=== PATIENT | female | born 1935 | race Caucasian/White ===

== ENCOUNTER 2016-11-03 11:22 | Inpatient (IN) | payer MEDICARE, BC, OTHER ==
[~2016-11-03] VITALS: Ht 147.3 cm; Wt 74.0 kg
[2016-11-03] MEDS ORDERED: MORPHINE 4 MG/ML 1ML SYRINGE As Ordered ONE ×2 (11:27→13:57)
[2016-11-03] MEDS ORDERED: ONDANSETRON 4MG/2ML VIAL (J2405) As Ordered ONE ×2 (11:27→20:18)
--- NOTE | 2016-11-03 12:36 | REP ---
Right hip series to include AP and cross-table lateral views right hip, and AP pelvis Comparison : None Findings: There is a comminuted intertrochanteric fracture right hip with a free avulsion fragment involving the lesser trochanter. 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 The bony pelvic ring is otherwise intact. There is no pelvic fracture or pelvic diastasis. The left hip is without fracture or displacement. Impression: Comminuted displaced intertrochanteric fracture of the right hip The remainder of the bony pelvis is intact. Left hip is without fracture or displaced Signed by Sandra Harvey MD 11/03/2016 12:27 P
--- NOTE | 2016-11-03 12:39 | REP ---
AP supine chest radiograph 11/03/2016 Indication: Preop Comparison: PA and lateral chest 01/16/2013 performed at [facility] Findings: Cardiomediastinal silhouette is normal. Lungs are clear bilaterally. There is eventration of the medial aspect of the right hemidiaphragm , with slight progression when compared with prior study . There are mild degenerative changes in thoracic spine Impression: no acute cardiopulmonary process Signed by Sandra Harvey MD 11/03/2016 12:31 P
[2016-11-03 12:54] LABS: BASO % 0.4 % (0.0-1.0); EOS # 0.1 K/mm3 (0.0-0.50); EOS % 1.4 % (0.0-3.0); LARGE UNSTAINED CELL # 0.2 K/mm3 (0.0-0.4); LARGE UNSTAINED CELL % 1.8 % (0.0-4.0); LYMPH # 1.6 K/mm3 (1.5-4.5); LYMPH % 19.2 % (24.0-44.0); MEAN CORPUSCULAR HEMOGLOBIN 29.5 pg (27.0-33.0); MEAN CORPUSCULAR HGB CONC 32.6 g/dl (32.0-36.5); MEAN CORPUSCULAR VOLUME 90.6 fl (80.0-96.0); MONO # 0.4 K/mm3 (0.0-0.8); MONO % 5.1 % (0.0-5.0); NEUTROPHILS # 6.1 K/mm3 (1.8-7.7); NEUTROPHILS % 72.1 % (36.0-66.0); PLATELET COUNT, AUTOMATED 321 k/mm3 (150-450); RED CELL DISTRIBUTION WIDTH 12.5 % (11.5-14.5); WHITE BLOOD COUNT 8.5 K/mm3 (4.0-10.0)
[2016-11-03 12:58] LABS: INR 1.04
[2016-11-03] MEDS ORDERED: PERCOCET 5MG/325MG TAB PO PRN ×2 (13:15)
[2016-11-03] MEDS ORDERED: ACETAMINOPHEN TAB 650MG DOSE (2X325MG) PO PRN (13:15)
[2016-11-03] MEDS ORDERED: ONDANSETRON 4MG/2ML VIAL (J2405) IV PRN ×2 (13:15→20:00)
[2016-11-03] MEDS ORDERED: IRBE150T12 PO (13:21)
[2016-11-03] MEDS ORDERED: NIACCAP PO (13:21)
[2016-11-03] MEDS ORDERED: GEMF600T PO (13:21)
[2016-11-03] MEDS ORDERED: OMEP20CA3 PO (13:21)
[2016-11-03] MEDS ORDERED: DRIS50002 PO (13:21)
[2016-11-03] MEDS ORDERED: VITA500T88 PO (13:23)
[2016-11-03] MEDS ORDERED: CITA40TA4 PO (13:23)
[2016-11-03] MEDS ORDERED: TAB-TAB PO (13:23)
[2016-11-03] MEDS ORDERED: MORPHINE 4 MG/ML 1ML SYRINGE IV PRN (13:30)
[2016-11-03 13:43] LABS: CALCIUM LEVEL 8.8 MG/DL (8.8-10.2); CREATININE FOR GFR 1.06 MG/DL (0.55-1.02); GLOMERULAR FILTRATION RATE 53.1 (>32); POTASSIUM SERUM 4.2 MEQ/L (3.5-5.1)
--- NOTE | 2016-11-03 13:55 | HPE ---
DATE OF ADMISSION: 11/03/2016 PRIMARY CARE PROVIDER: Dr. Griffin in [place]. CHIEF COMPLAINT: Right hip fracture. HISTORY OF PRESENT ILLNESS: Patient is an 81-year-old female with a past medical history significant for osteoporosis, diet-controlled diabetes, hypertension, gastroesophageal reflux disease (GERD), depression, hypercholesterolemia, presented to [facility] on 11/03/2016 after a mechanical fall. She was walking a dog and near the driveway. She stepped on a layer of ice, and she slipped, landing on her right hip. After the injury, patient complained about significant right hip pain, and she could not move the hip. Denies any loss of consciousness. Denies any lacerations or bleeding. Denies any muscle weakness. Denies any lightheadedness. When patient arrived to the emergency room, hip x-ray was performed, which showed comminuted displaced intratrochanteric fracture of the right hip, and orthopedic surgeon, Dr. Bernstein, was contacted and decided to schedule patient for a procedure, and hospitalist team was called for admission and also for the preoperative clearance. Patient denies any history of heart disease. Denies any lung disease. Regarding her diabetes, patient stated that she has been using dietary control due to a history of metformin causing kidney injury. At baseline, patient never has any significant hyperglycemia. Patient had three major surgeries in the past, and she has never had an issue with sedation and surgery. At baseline patient can walk more than two blocks and climb more than one flight of stairs without any difficulty breathing. Before the hip fracture, patient has been very independent in her home. She can manage her activities of daily living without any assistance. ALLERGIES: PENICILLIN, rash. HOME MEDICATIONS: - irbesartan 150 mg by mouth daily - gemfibrozil 600 mg by mouth twice a day - omeprazole 20 mg by mouth daily - niacin 500 mg by mouth daily - vitamin D2 at 50,000 units by mouth monthly - vitamin C 500 mg by mouth daily PAST MEDICAL HISTORY: 1. Osteoporosis. 2. Ves-pyhjvrt-sghedgeio diabetes. 3. Hypertension. 4. Omeprazole. 5. Depression. 6. Hypercholesterolemia. SOCIAL HISTORY: Denies smoking. Denies any alcohol use. Denies any recreational drug use. REVIEW OF SYSTEMS: GENERAL: No fever. No chills. HEENT: No lightheadedness. No vision change. No auditory changes. CARDIOVASCULAR: No history of cardiac disease. No chest pain. No palpitations. RESPIRATORY: No history of significant lung disease. No shortness of breath. No cough. No sputum production. GASTROINTESTINAL: No nausea. No vomiting. No abdominal pain. No diarrhea. MUSCULOSKELETAL: Denies any muscle or joint pain. NEUROLOGIC: Denies any numbness or tingling. OBJECTIVE: VITAL SIGNS: Blood pressure is 132/96, pulse rate is 109, respirations rate is 20, temperature is 96.8, weight is 56.7 kg, body height is 147.32 cm. GENERAL: Mild to moderate distress. Patient alert and oriented times three. HEENT: Normocephalic, atraumatic. Extraocular motor grossly intact. CARDIOVASCULAR: Positive S1, S2, regular rate. LUNGS: Clear to auscultation bilaterally. ABDOMEN: Soft, nontender, nondistended. Bowel sounds present. No rebound. No guarding. EXTREMITIES: Trace pitting edema bilaterally. There is some mild varicose veins of the bilateral lower extremities near the ankles. NEUROLOGIC: Sensation to fine touch grossly intact. Muscle strength 5/5. Unable to check right lower extremity strength due to the significant pain. LABORATORY DATA: WBC 8.5, hemoglobin 10.6, hematocrit 32.6, platelet count is 321. A1c is 6.1. PT is 13.7, INR is 1.04. Hip x-ray shows comminuted, displaced intertrochanteric fracture of the right hip. A chest x-ray showed no acute cardiopulmonary process. EKG shows sinus rhythm. No ST abnormalities. ASSESSMENT AND PLAN: 1. Right hip fracture. Patient will be admitted to medical/surgical floor on inpatient status. The orthopedic surgeon has seen the patient and been consulted, and patient is scheduled to have right hip replacement by Dr. Bernstein in the afternoon. Patient will remain nothing by mouth. Patient will receive pain control through intravenous (IV) morphine. Patient does have diabetes. Patient's diabetes has been under good control, A1c of 6.1. Patient does not have any significant pulmonary or cardiovascular diseases in the past. At baseline, patient has full capacity to maintain her own activities of daily living without assistance. Patient has metabolic equivalent of task (MET) greater than 4. EKG reviewed. EKG shows normal sinus rhythm. Patient is a low-risk patient. The surgery is intermediate risk. Currently, patient is medially optimized for the procedure. 2. Rqq-zumrwdw-tzevepbrd diabetes. Patient stated most of the time she has good blood sugars with diet control. 3. Gastroesophageal reflux disease. Patient is on omeprazole. 4. Hypertension. Patient is on irbesartan. We will hold the blood pressure medication. 5. Hyperlipidemia. Patient has taken gemfibrozil in the past. 6. Deep vein thrombosis (DVT) prophylaxis. On hold. Patient has scheduled surgery in the afternoon.
[2016-11-03] MEDS ORDERED: CLINDAMYCIN 600 MG/50 ML PREMIX BAG As Ordered ONE (14:14)
[2016-11-03] MEDS ORDERED: CLINDAMYCIN INJ 900MG/6ML VIAL As Ordered ONE ×2 (14:17→17:28)
--- NOTE | 2016-11-03 15:16 | REP ---
RIGHT FEMUR: AP and lateral views of the right femur are performed. A comminuted intertrochanteric fracture is again noted of the proximal right femur with varus deformity. The more distal femur is intact. There appears to be chondrocalcinosis at the knee joint. AP views are somewhat limited due to limitations with patient positioning. Signed by Lucio Oshea MD 11/03/2016 04:56 P
--- NOTE | 2016-11-03 16:57 | EDDOCDS ---
Nurse's Notes [facility] Name: Avi Craft Age: 81 yrs Sex: Female : 1935 Arrival Date: 11/03/2016 Time: 11:22 Bed 19 Private MD: Diagnosis: Intertrochanteric fracture of femur Presentation: 11/03 11:30 Presenting complaint: EMS states: fell wallking dog and injured right hip-no head ms2 injury --no LOC. 11:32 Presenting complaint: EMS states: given morphine 4mg and zofran 4mg at 1115. Adult ms2 Sepsis Screening: The patient does not have new or worsening altered mentation. Patient's respiratory rate is less than 22. Suicide/Homicide risk assessment- the patient denies having any suicidal and/or homicidal ideations and does not present with any other emotional, behavioral or mental health complaints. 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 Transition of care: patient was not received from another setting of care. 11:32 Acuity: SHIN Level 3 ms2 11:32 Method Of Arrival: Ambulance ms2 Triage Assessment: 11:35 General: Appears distressed, ill, Behavior is crying. Pain: Pain currently is 9 out of ms2 10 on a pain scale. The patient is triaged at the bedside. See Assessment in Nurses Notes section of ED record. Neurological: Level of Consciousness is awake, alert, obeys commands. Respiratory: No deficits noted. Airway is patent Respiratory effort is even, unlabored, Respiratory pattern is regular, symmetrical. GI: Abdomen is flat, non- distended. Derm: Skin is pink, warm & dry. Musculoskeletal: Range of motion intact in all extremities. Historical: - Allergies: PENICILLINS; - Home Meds: 1. irbesartan 150 mg oral tab 1 tab once daily (Last dose: 11/03/2016 07:30) 2. gemfibrozil 600 mg Oral tab 1 tab 2 times per day (Last dose: 11/03/2016 07:30) 3. omeprazole 20 mg Oral cpDR 1 cap once daily (Last dose: 11/03/2016 07:30) 4. niacin 500 mg Oral Tb24 1 tab once daily (Last dose: 11/03/2016 07:30) 5. Vitamin D2 50,000 unit oral cap once monthly 6. Vitamin C 500 mg Oral tab daily (Last dose: 11/03/2016 07:30) - PMHx: Osteoporosis; Diabetes - NIDDM: controlled; Hypertension; OMEPRAZOLE; depression; Hypercholesterolemia; - PSHx: Appendectomy; Cholecystectomy; Adenoidectomy; Tonsillectomy; Tubal ligation; - Family history: Not pertinent. - Social history: No barriers to communication noted, The patient speaks fluent Angolan. - : The pt / caregiver states he / she is not on anticoagulants. Home medication list is obtained from the patient. Screenin:39 Screening information is obtained from the patient. Fall risk: At risk due to ms2 immobility. Assistance ADL's: requires no assistance with activities of daily living. Abuse/DV Screen: The patient / caregiver reports he/she is: not in a situation that causes fear, pain or injury. 16:36 Nutritional screening: No deficits noted. Advance Directives: Currently, there is no ms2 health care proxy. There is an active DNR order but there is no copy available at this time. There is no living will. There is an active Power of Human Resource Officer, son lisa craft. Advance directive information does not know if advance directives have been placed in a prior [facility] medical record. Further advance directive information is declined. home support is adequate. Assessment: 11:48 General: Appears uncomfortable, Behavior is cooperative. Pain: Location: right groin ms2 Pain currently is 9 out of 10 on a pain scale. Pain: Pain currently is 7 out of 10 on a pain scale. Neurological: Level of Consciousness is awake, alert, obeys commands. Respiratory: No deficits noted. Airway is patent Respiratory effort is even, unlabored, Respiratory pattern is regular, symmetrical. Derm: Skin is pink, warm & dry. Musculoskeletal: Range of motion limited in right hip. Musculoskeletal: Circulation, motion, and sensation intact Capillary refill < 3 seconds. 11:51 General: LAST ATE:0800---CINAMOMN ROLL -COFFEE. ms2 12:43 General: orthopedist in to speak with pt and family. ms2 13:17 General: Appears in no apparent distress, Behavior is cooperative. General: pt declines ms2 pain med-will request if needs. General: family with pt. Pain: Pain currently is 4 out of 10 on a pain scale. Neurological: Level of Consciousness is awake, alert, obeys commands. Respiratory: Respiratory effort is even, unlabored. Derm: Skin is pink, warm & dry. Musculoskeletal: Circulation, motion, and sensation intact Capillary refill < 3 seconds Range of motion limited in right hip. 14:08 General: Radiology aware to do femur x-ray. ms2 14:30 General: sullivan catheter inserted per order and per procedure-pt tolerated well draining ms2 yellow urine. 15:16 General: Appears in no apparent distress. Pain: Pain currently is 5 out of 10 on a pain ms2 scale. Neurological: No deficits noted. Respiratory: Respiratory effort is even, unlabored. Derm: Skin is pink, warm & dry. Musculoskeletal: Circulation, motion, and sensation intact Capillary refill < 3 seconds Range of motion limited in right hip. 16:30 General: Appears in no apparent distress, Behavior is cooperative. Pain: Pain currently ms2 is 5 out of 10 on a pain scale. Neurological: Level of Consciousness is awake, alert, obeys commands. Respiratory: No deficits noted. Airway is patent Respiratory effort is even, unlabored, Respiratory pattern is regular, symmetrical. Derm: Skin is pink, warm & dry. Musculoskeletal: Range of motion limited in right hip. 16:33 Adult Sepsis Screening: The patient does not have new or worsening altered mentation. ms2 Patient's respiratory rate is less than 22. Systolic blood pressure is greater than 100. Patient has a qSOFA score of 0- Negative Sepsis Screen. Vital Signs: 11:38 BP 132 / 96; Pulse 109; Resp 20 S; Temp 96.8(T); Weight 56.7 kg (R); Height 4 ft. 10 ms2 in. (147.32 cm) (R); Pain 9/10; 14:07 BP 130 / 61; Pulse 94; Resp 20 S; Pulse Ox 96% on R/A; ms2 14:37 BP 126 / 61; Pulse 87; Resp 20 S; Temp 97.2(O); Pulse Ox 94% on R/A; Pain 2/10; ms2 16:23 BP 125 / 65; Pulse 94; Resp 16; Temp 97.5(O); Pulse Ox 94% on R/A; Pain 3/10; ld5 11:38 Body Mass Index 26.13 (56.70 kg, 147.32 cm) ms2 ED Course: 11:23 Patient visited by Yeni Ardon, Warehouse Administrator. deg 11:23 Patient moved to Waiting deg 11:24 Tatyana Zaragoza MD is Attending Physician. sd1 11:24 Hua Palacio,RN is Primary Nurse. sd1 11:24 Patient moved to 19 sd1 11:24 Patient moved to Waiting deg 11:24 Patient moved to 19 sd1 11:27 Patient visited by Tatyana Zaragoza MD. sd1 11:30 IV is patent, is intact, right ac by ems. No procedures done that require assistance. ms2 11:33 IV is patent, is intact, is free of redness or swelling. solution is infusing as ms2 ordered. 11:35 Triage Initiated ms2 11:59 Patient visited by Hua Palacio,LAUREN. ms2 12:43 Patient visited by Hua Palacio,LAUREN. ms2 12:43 PT/INR Sent. ms2 12:43 MED Profile Sent. ms2 12:43 CBC with Diff Sent. ms2 12:47 Hemoglobin A1c Sent. ms2 12:51 Olya Dillon is Hospitalizing Provider. sd1 12:59 Hip,AP,LAT to include Pelvis Returned. EDMS 12:59 Chest, 1 View Returned. EDMS 13:17 Patient visited by Hua Palacio,LAUREN. ms2 13:18 The patient / caregiver is instructed regarding the plan of care and ED course. ms2 13:18 IV is patent, is intact, is free of redness or swelling. solution is infusing as ms2 ordered. 13:37 [facility] Payment Agreement was scanned into [employer] and attached to record. lg 13:47 Admission Orders was scanned into [employer] and attached to record. deg 15:22 Femur Returned. EDMS 16:31 The patient / caregiver is instructed regarding the plan of care and ED course. ms2 16:31 IV is patent, is intact, is free of redness or swelling. solution is infusing as ms2 ordered. Administered Medications: 11:37 Drug: morphine 4 mg [morphine 4 mg/mL intravenous cartridge (1 mL)] Route: IVP; Site: rs3 right antecubital; 11:37 Drug: Ondansetron 4 mg [ondansetron HCl 2 mg/mL intravenous solution (2 mL)] Route: rs3 IVP; Site: right antecubital; 11:37 Drug: NS 0.9% 1000 ml [sodium chloride 0.9 % intravenous solution] Route: IV; Rate: 100 rs3 mL/hr; Site: right antecubital; 14:00 Drug: morphine 4 mg [morphine 4 mg/mL intravenous cartridge (1 mL)] Route: IVP; Site: ms2 right antecubital; 14:07 Follow up: BP 130 / 61; Pulse 94 bpm; Resp 20 bpm Spontaneous; Pulse Ox 96% RA ms2 Output: 16:23 Urine: 400.00ml (Sullivan); Total: 400.00ml. ld5 Order Results: Lab Order: CBC with Diff; SPEC'M 11/03/16 12:37 Test: WHITE BLOOD COUNT; Value: 8.5; Range: 4.0-10.0; Units: K/mm3; Status: F Test: RED BLOOD COUNT; Value: 3.60; Range: 4.00-5.40; Abnormal: Below low normal; Units: M/mm3; Status: F Test: HEMOGLOBIN; Value: 10.6; Range: 12.0-16.0; Abnormal: Below low normal; Units: g/dl; Status: F Test: HEMATOCRIT; Value: 32.6; Range: 36.0-47.0; Abnormal: Below low normal; Units: %; Status: F Test: MEAN CORPUSCULAR VOLUME; Value: 90.6; Range: 80.0-96.0; Units: fl; Status: F Test: MEAN CORPUSCULAR HEMOGLOBIN; Value: 29.5; Range: 27.0-33.0; Units: pg; Status: F Test: MEAN CORPUSCULAR HGB CONC; Value: 32.6; Range: 32.0-36.5; Units: g/dl; Status: F Test: RED CELL DISTRIBUTION WIDTH; Value: 12.5; Range: 11.5-14.5; Units: %; Status: F Test: PLATELET COUNT, AUTOMATED; Value: 321; Range: 150-450; Units: k/mm3; Status: F Test: NEUTROPHILS %; Value: 72.1; Range: 36.0-66.0; Abnormal: Above high normal; Units: %; Status: F Test: LYMPH %; Value: 19.2; Range: 24.0-44.0; Abnormal: Below low normal; Units: %; Status: F Test: MONO %; Value: 5.1; Range: 0.0-5.0; Abnormal: Above high normal; Units: %; Status: F Test: EOS %; Value: 1.4; Range: 0.0-3.0; Units: %; Status: F Test: BASO %; Value: 0.4; Range: 0.0-1.0; Units: %; Status: F Test: LARGE UNSTAINED CELL %; Value: 1.8; Range: 0.0-4.0; Units: %; Status: F Test: NEUTROPHILS #; Value: 6.1; Range: 1.8-7.7; Units: K/mm3; Status: F Test: LYMPH #; Value: 1.6; Range: 1.5-4.5; Units: K/mm3; Status: F Test: MONO #; Value: 0.4; Range: 0.0-0.8; Units: K/mm3; Status: F Test: EOS #; Value: 0.1; Range: 0.0-0.50; Units: K/mm3; Status: F Test: BASO #; Value: 0.0; Range: 0.0-0.2; Units: K/mm3; Status: F Test: LARGE UNSTAINED CELL #; Value: 0.2; Range: 0.0-0.4; Units: K/mm3; Status: F Lab Order: [facility] Profile; [facility] 11/03/16 12:37 Test: GLUCOSE, FASTING; Value: 110; Range: 83-110; Units: MG/DL; Status: F Test: BLOOD UREA NITROGEN; Value: 23; Range: 7-18; Abnormal: Above high normal; Units: MG/DL; Status: F Test: CREATININE FOR GFR; Value: 1.06; Range: 0.55-1.02; Abnormal: Above high normal; Units: MG/DL; Status: F Test: GLOMERULAR FILTRATION RATE; Value: 53.1; Range: >32; Status: F Test: SODIUM LEVEL; Value: 143; Range: 136-145; Units: MEQ/L; Status: F Test: POTASSIUM SERUM; Value: 4.2; Range: 3.5-5.1; Units: MEQ/L; Status: F Test: CHLORIDE LEVEL; Value: 107; Range: 98-107; Units: MEQ/L; Status: F Test: CARBON DIOXIDE LEVEL; Value: 27; Range: 21-32; Units: MEQ/L; Status: F Test: ANION GAP; Value: 9; Range: 8-16; Units: MEQ/L; Status: F Test: CALCIUM LEVEL; Value: 8.8; Range: 8.8-10.2; Units: MG/DL; Status: F Test Note: ; Units are mL/min/1.73 m2 Chronic Kidney Disease Staging per NKF: Stage I & II GFR >=60 Normal to Mildly Decreased Stage III GFR 30-59 Moderately Decreased Stage IV GFR 15-29 Severely Decreased Stage V GFR <15 Very Little GFR Left ESRD GFR <15 on STAKER SURVEYING Lab Order: PT/INR; [facility]' 11/03/16 12:37 Test: PROTHROMBIN TIME; Value: 13.7; Range: 12.3-14.5; Units: SECONDS; Status: F Test: INR; Value: 1.04; Status: F Test Note: ; THERAPUTIC HUMAN INR VALUES INDICATIONS NORMAL RANGES PROPHYLAXIS/TREATMENT OF: VENOUS THROMBOSIS 2.0-3.0 PULMONARY EMBOLISM 2.0-3.0 PREVENTION OF SYSTEMIC EMBOLISM FROM: TISSUE HEART VALVES 2.0-3.0 ACUTE MYOCARDIAL INFARCTION 2.0-3.0 VALVULAR HEART DISEASE 2.0-3.0 ATRIAL FIBRILLATION 2.0-3.0 MECHANICAL VALVES(HIGH RISK) 2.5-3.5 RECURRENT MYOCARDIAL INFARCTION 2.5-3.5 Lab Order: Hemoglobin A1c; [facility]' 11/03/16 00:00 Test: HEMOGLOBIN A1c; Value: 6.1; Range: 4.5-6.2; Units: %; Status: F Test: ESTIMATED AVERAGE GLUCOSE; Value: 128; Range: 60-110; Abnormal: Above high normal; Units: MG/DL; Status: F Radiology Order: Hip,AP,LAT to include Pelvis Test: Hip,AP,LAT to include Pelvis REASON FOR EXAMINATION: Trauma; Right hip series to include AP and cross-table lateral views right hip, and AP; pelvis; ; Comparison : None; ; Findings: There is a comminuted intertrochanteric fracture right hip with a free; avulsion fragment involving the lesser trochanter. 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 There is no pelvic fracture or pelvic; diastasis. The left hip is without fracture or displacement.; ; Impression: Comminuted displaced intertrochanteric fracture of the right hip; ; The remainder of the bony pelvis is intact. Left hip is without fracture or; displaced; ; ; ; ; ; ; Signed by; Sandra Harvey MD 11/03/2016 12:27 P; Radiology Order: Chest, 1 View Test: Chest, 1 View REASON FOR EXAMINATION: perop; AP supine chest radiograph 11/03/2016; ; Indication: Preop; ; Comparison: PA and lateral chest 01/16/2013 performed at [facility]; ; Findings: Cardiomediastinal silhouette is normal. Lungs are clear bilaterally.; There is eventration of the medial aspect of the right hemidiaphragm , with; slight progression when compared with prior study .; ; There are mild degenerative changes in thoracic spine; ; Impression: no acute cardiopulmonary process; ; ; Signed by; Sandra Harvey MD 11/03/2016 12:31 P; Radiology Order: Femur Test: Femur REASON FOR EXAMINATION: FRACTURE; ; RIGHT FEMUR:; ; AP and lateral views of the right femur are performed.; ; A comminuted intertrochanteric fracture is again noted of the proximal right; femur with varus deformity. The more distal femur is intact. There appears to be; chondrocalcinosis at the knee joint. AP views are somewhat limited due to; limitations with patient positioning.; ; ; ; Unreviewed; Outcome: 12:51 Decision to Hospitalize by Provider. sd1 16:31 Discharge Assessment: patient administered narcotics - yes. Patient was admitted to the [address] or transferred to another facility. The following High Risk Discharge criteria are identified: None. Admitted to OR accompanied by nurse, accompanied by tech, family with patient, via stretcher, with chart. Condition: stable. CT Study completed. Property given to family member, daughter. 16:56 [place]. [facility] [place] Signatures: Dispatcher [employer] EDMS Tatyana Zaragoza MD MD sd1 Yeni Ardon, Warehouse Administrator Unit deg Hua Palacio RN RN ms2 Denia Penn, Reg Reg lg Lucrecia Foster RN RN rs3 Trisha Velazco RN RN ld5 Corrections: (The following items were deleted from the chart) 11:51 11:38 BP 132 / 96; Pulse 109bpm; Resp 20bpm; Spontaneous; 56.7 kg Reported; Height 4 ms2 ft. 10 in. Reported; BMI: 26.1; Pain 9/10; ms2 MTDD
--- NOTE | 2016-11-03 16:57 | EDDOCDS ---
Physician Documentation [facility] Name: Avi Tyson Age: 81 yrs Sex: Female : 1935 Arrival Date: 11/03/2016 Time: 11:22 Bed 19 Private MD: Disposition: 11/03/16 12:51 Hospitalization ordered by Olya Dillon for Inpatient Admission. Preliminary diagnosis is Intertrochanteric fracture of femur. - Bed requested for 5 Maurer. - Status is Inpatient Admission. ms2 - Condition is Stable. - Problem is new. - Symptoms are unchanged. Historical: - Allergies: PENICILLINS; - Home Meds: 1. irbesartan 150 mg oral tab 1 tab once daily (Last dose: 11/03/2016 07:30) 2. gemfibrozil 600 mg Oral tab 1 tab 2 times per day (Last dose: 11/03/2016 07:30) 3. omeprazole 20 mg Oral cpDR 1 cap once daily (Last dose: 11/03/2016 07:30) 4. niacin 500 mg Oral Tb24 1 tab once daily (Last dose: 11/03/2016 07:30) 5. Vitamin D2 50,000 unit oral cap once monthly 6. Vitamin C 500 mg Oral tab daily (Last dose: 11/03/2016 07:30) - PMHx: Osteoporosis; Diabetes - NIDDM: controlled; Hypertension; OMEPRAZOLE; depression; Hypercholesterolemia; - PSHx: Appendectomy; Cholecystectomy; Adenoidectomy; Tonsillectomy; Tubal ligation; - Family history: Not pertinent. - Social history: No barriers to communication noted, The patient speaks fluent Hebrew. - : The pt / caregiver states he / she is not on anticoagulants. Home medication list is obtained from the patient. Vital Signs: 11/03 11:38 BP 132 / 96; Pulse 109; Resp 20 S; Temp 96.8(T); Weight 56.7 kg / 125 lbs (R); Height 4 ms2 ft. 10 in. (147.32 cm) (R); Pain 9/10; 14:07 BP 130 / 61; Pulse 94; Resp 20 S; Pulse Ox 96% on R/A; ms2 14:37 BP 126 / 61; Pulse 87; Resp 20 S; Temp 97.2(O); Pulse Ox 94% on R/A; Pain 2/10; ms2 16:23 BP 125 / 65; Pulse 94; Resp 16; Temp 97.5(O); Pulse Ox 94% on R/A; Pain 3/10; ld5 11:38 Body Mass Index 26.13 (56.70 kg, 147.32 cm) ms2 MDM: 11:25 IV Saline Lock ordered. sd1 11:25 morphine 4 mg IVP every 15 minutes; Document pain score/vitals after each dose (Hold if sd1 SBP < 90mmHg) x2 ordered. 11:25 Ondansetron 4 mg IVP once ordered. sd1 11:26 Hip,AP,LAT to include Pelvis Ordered. EDMS 11:26 NS 0.9% 1000 ml IV at 100 mL/hr continuous ordered. sd1 11:27 CBC with Diff Ordered. EDMS 11:27 MED Profile Ordered. EDMS 11:27 PT/INR Ordered. EDMS 11:27 Chest, 1 View Ordered. EDMS 11:27 ECG WITH READING ER PHYS+CARDIAG ordered. EDMS 12:28 Financial registration complete. lg 12:44 Hemoglobin A1c Ordered. EDMS 13:13 Admission / Observation Status ordered. EDMS 13:13 NPO DIET ordered. EDMS 13:37 [facility] [place] was scanned into [employer] and attached to record. lg 13:47 Admission Orders was scanned into [employer] and attached to record. deg 13:48 Femur Ordered. EDMS 14:45 Lundy ordered. ms2 16:20 Hip, IN O.R. Ordered. EDMS Administered Medications: 11:37 Drug: morphine 4 mg [morphine 4 mg/mL intravenous cartridge (1 mL)] Route: IVP; Site: rs3 right antecubital; 11:37 Drug: Ondansetron 4 mg [ondansetron HCl 2 mg/mL intravenous solution (2 mL)] Route: rs3 IVP; Site: right antecubital; 11:37 Drug: NS 0.9% 1000 ml [sodium chloride 0.9 % intravenous solution] Route: IV; Rate: 100 rs3 mL/hr; Site: right antecubital; 14:00 Drug: morphine 4 mg [morphine 4 mg/mL intravenous cartridge (1 mL)] Route: IVP; Site: ms2 right antecubital; 14:07 Follow up: BP 130 / 61; Pulse 94 bpm; Resp 20 bpm Spontaneous; Pulse Ox 96% RA ms2 Signatures: Dispatcher [employer] EDTatyana Wiggins MD MD sd1 Yeni Ardon, General Forecaster Unit deg Hua Palacio RN RN ms2 Denia Penn, Reg Reg lg Elise Bird RN RN lmg Lucrecia Foster RN rs3 The chart was reviewed and I authenticate all verbal orders and agree with the evaluation and treatment provided.Attachments: 13:37 [facility] [place] Agreement lg 13:47 Admission Orders deg MTDD
[2016-11-03] MEDS ORDERED: KETAMINE HCL 200 MG/20 ML VIAL As Ordered ONE (18:10)
[2016-11-03] MEDS ORDERED: MIDAZOLAM INJ 2 MG/2 ML VIAL (J2250) As Ordered ONE (18:10)
[2016-11-03] MEDS ORDERED: PROPOFOL 500 MG/50 ML VIAL As Ordered ONE (18:10)
[2016-11-03] MEDS ORDERED: PHENYLephrine HCL 500 MCG/5 ML (100MCG/ML) SYRINGE (J2370) As Ordered ONE ×3 (18:10→18:40)
[2016-11-03] MEDS ORDERED: CLINDAMYCIN INJ 900MG/6ML VIAL XX ONE (18:15)
--- NOTE | 2016-11-03 19:10 | ECGEPIP ---
Stationary ECG Study [facility] - ED Test Date: 2016-11-03 Pat Name: CONOR GARZA Department: Room: - Gender: F Chipper: erick : 1935 Requested By: Tatyana Zaragoza Order Number: [id number] Reading MD: Tatyana Zaragoza Measurements Intervals [place] Rate: 77 P: 76 VA: 129 QRS: 0 QRSD: 84 T: -5 QT: 391 QTc: 443 Interpretive Statements SINUS RHYTHM NSTTW ABNORMALITY DELAYED R PROGESSION NO PRIOR FOR COMPARISON Electronically Signed On 11-03-2016 19:09:49 EST by Tatyana Zaragoza
[2016-11-03] MEDS ORDERED: MEPERIDINE INJ 25 MG/ML VIAL (J2175) As Ordered ONE (19:23)
[2016-11-03] MEDS ORDERED: MORPHINE 2 MG/ML 1ML SYRINGE IV PRN (20:00)
[2016-11-03] MEDS ORDERED: LR 1,000 ML IV SCH (20:00)
[2016-11-03] MEDS ORDERED: MEPERIDINE INJ 25 MG/ML VIAL (J2175) IV PRN (20:00)
[2016-11-03] MEDS ORDERED: METOCLOPRAMIDE INJ 10MG/2ML VIAL (J2765) IV PRN (20:00)
[2016-11-03] MEDS ORDERED: fentaNYL 100 MCG/2 ML INJECTION (J3010) IV PRN (20:00)
[2016-11-03] MEDS ORDERED: PERCOCET 5MG/325MG TAB As Ordered ONE ×2 (20:18→21:21)
[2016-11-03] MEDS: PERCOCET 5MG/325MG TAB PO PRN ×2 (20:25→21:24)
[2016-11-03 22:00] VITALS: BP 125/72
[2016-11-03] MEDS: GEMFIBROZIL 600 MG TAB PO SCH (23:50)
[2016-11-03] MEDS: OMEPRAZOLE 20 MG CAP PO SCH (23:50)
[2016-11-04 02:00] VITALS: BP 139/60
[2016-11-04 06:00] VITALS: BP 126/50
[2016-11-04] MEDS: PERCOCET 5MG/325MG TAB PO PRN ×4 (06:23→20:49)
[2016-11-04 07:14] LABS: MEAN CORPUSCULAR HEMOGLOBIN 30.7 pg (27.0-33.0); MEAN CORPUSCULAR HGB CONC 33.7 g/dl (32.0-36.5); MEAN CORPUSCULAR VOLUME 91.1 fl (80.0-96.0); RED CELL DISTRIBUTION WIDTH 12.6 % (11.5-14.5); WHITE BLOOD COUNT 7.6 K/mm3 (4.0-10.0)
[2016-11-04 07:29] LABS: CALCIUM LEVEL 8.2 MG/DL (8.8-10.2); CREATININE FOR GFR 1.05 MG/DL (0.55-1.02); GLOMERULAR FILTRATION RATE 53.7 (>32); POTASSIUM SERUM 4.4 MEQ/L (3.5-5.1)
[2016-11-04] MEDS: IRBESARTAN 150 MG TAB PO SCH (07:57)
[2016-11-04] MEDS: SENOKOT S TAB PO SCH ×2 (07:58→20:49)
[2016-11-04] MEDS: GEMFIBROZIL 600 MG TAB PO SCH ×2 (07:58→20:49)
[2016-11-04] MEDS: ASCORBIC ACID 500 MG TAB PO SCH (07:58)
[2016-11-04] MEDS: OMEPRAZOLE 20 MG CAP PO SCH ×2 (07:58→20:49)
[2016-11-04] MEDS: MOM 30ML SUSPENSION UDC PO SCH (07:58)
[2016-11-04] MEDS: MULTIVITAMINS/MINERALS THERAP 1 TAB PO SCH (07:59)
[2016-11-04] MEDS: CitaloPRAM (CeleXA) 20 MG TAB PO SCH (09:00)
[2016-11-04] MEDS: MIRALAX *UNIT DOSE* 17GM PACKET PO SCH (09:00)
[2016-11-04] MEDS: ONDANSETRON 4 MG TAB (S0181) PO PRN ×2 (10:06→17:04)
--- NOTE | 2016-11-04 12:42 | IPNPDOC ---
Date of Service/Time 11/04/16 Progress Note SUBJECTIVE: The patient states that she has no pain while lying at rest but when she begins to move she feels pain in her hip. She denies lightheadedness dizziness chest pain shortness of breath nausea vomiting or diarrhea OBJECTIVE: PHYSICAL EXAMINATION: VITAL SIGNS: Mildly tachycardic Please see below. GENERAL: She was somewhat pallorous elderly female lying flat in bed the patient does not appear to be any acute distress she is accompanied by her daughter HEENT: Pupils are equally round and reactive to light she is wearing glasses she has moist mucous membranes elevation and CVP CARDIOVASCULAR: Is 1 S2 regular she is not tachycardic on my exam. RESPIRATORY: To auscultation. ABDOMINAL: Benign EXTREMITIES: Skin is clean dry and intact otherwise no clubbing cyanosis or edema LABORATORY DATA: Acute on chronic anemia renal function at baseline Please see below. MICROBIOLOGY: Please see below. IMAGING: As per orthopedics DVT prophylaxis ordered?: Patient is on Coumadin ASSESSMENT AND PLAN: This is a 81-year-old male with comminuted intratrochanteric fracture of the right femur postop day 1. Problem #1 comminuted intratrochanteric fracture of the right femur: PT Lundy catheter DVT prophylaxis pain management all as per orthopedic surgery. The patient appears to be doing quite well postoperatively she'll begin working with physical therapy she has tolerated the procedure quite well. Problem #2 acute on chronic anemia: Acute blood loss anemia, for now we will simply monitor showed a hemoglobin drop below 8 we'll consider transfusing HER- 2 units PRBCs. Problem #3 depression: The patient is on Celexa Problem #4 hypertension: Patient is normotensive at the present time we'll continue with irbesartan. Problem #5 dyslipidemia: The patient was continued on gemfibrozil. Problem #6 gastroesophageal reflux disease patient was continued on omeprazole. DISPOSITION: The patient will work with physical therapy OCL the patient progresses if she is able to return home with family or potentially acute rehabilitation. VS, I&O, 24H, Fishbone VS, I&O, 24H, Fishbone Vital Signs Date Time Temp Pulse Resp B/P Pulse Ox O2 Delivery O2 Flow Rate FiO2 11/04/16 10:50 16 11/04/16 07:57 98/60 11/04/16 07:30 Nasal Cannula 0.0 11/04/16 06:00 98.4 102 93 I&O- Last 24 Hours up to 6 AM 11/04/16 06:00 Intake Total 1860 ml Output Total 725 ml Balance 1135 ml Laboratory Tests 2 11/03/16 12:37: Anion Gap 9, White Blood Count 8.5, Red Blood Count 3.60L, Hemoglobin 10.6L, Hematocrit 32.6L, Mean Corpuscular Volume 90.6, Mean Corpuscular Hemoglobin 29.5 , Mean Corpuscular Hemoglobin Concent 32.6, Red Cell Distribution Width 12.5, Platelet Count 321, Neutrophils (%) (Auto) 72.1H, Lymphocytes (%) (Auto) 19.2L, Monocytes (%) (Auto) 5.1H, Eosinophils (%) (Auto) 1.4, Basophils (%) (Auto) 0.4 , Neutrophils # (Auto) 6.1, Lymphocytes # (Auto) 1.6, Monocytes # (Auto) 0.4, Eosinophils # (Auto) 0.1, Basophils # (Auto) 0.0, Blood Urea Nitrogen 23H, Creatinine 1.06H, Sodium Level 143, Potassium Level 4.2, Chloride Level 107, Carbon Dioxide Level 27, Calcium Level 8.8, Glomerular Filtration Rate 53.1, Large Unclassified Cells # 0.2, Large Unclassified Cells % 1.8, Prothromb Time International Ratio 1.04, Prothrombin Time 13.7 11/04/16 06:51: Anion Gap 10, Blood Urea Nitrogen 22H, Creatinine 1.05H, Sodium Level 142, Potassium Level 4.4, Chloride Level 107, Carbon Dioxide Level 25, Calcium Level 8.2L, Glomerular Filtration Rate 53.7 Laboratory Tests 11/03/16 12:37 Calcium Level 8.8, Red Blood Count 3.60 L, Mean Corpuscular Volume 90.6, Mean Corpuscular Hemoglobin 29.5, Mean Corpuscular Hemoglobin Concent 32.6, Red Cell Distribution Width 12.5, Neutrophils (%) (Auto) 72.1 H, Lymphocytes (%) (Auto) 19.2 L, Monocytes (%) (Auto) 5.1 H, Eosinophils (%) (Auto) 1.4, Basophils (%) ( Auto) 0.4, Neutrophils # (Auto) 6.1, Lymphocytes # (Auto) 1.6, Monocytes # (Auto ) 0.4, Eosinophils # (Auto) 0.1, Basophils # (Auto) 0.0 11/04/16 06:51 Calcium Level 8.2 L, Red Blood Count 2.90 L, Mean Corpuscular Volume 91.1, Mean Corpuscular Hemoglobin 30.7, Mean Corpuscular Hemoglobin Concent 33.7, Red Cell Distribution Width 12.6 CURT RAMIRES MD Nov 04, 2016 12:42
--- NOTE | 2016-11-04 12:57 | REP ---
Right hip: Four views obtained intraoperatively. History: Fracture. 2 minutes 44 seconds of fluoroscopy time is reported. Findings: A sequence of four fluoroscopically obtained intraprocedural spot radiographs of the right femur document open reduction and internal fixation of intertrochanteric fracture. Signed by Bakari Griffin MD 11/04/2016 02:43 P
[2016-11-04 14:00] VITALS: BP 122/59
--- NOTE | 2016-11-04 14:57 | REP ---
POSTOPERATIVE RIGHT HIP, THREE VIEWS: Comparison: 11/03/2016 There is gamma nail fixation of an intratrochanteric fracture with the hardware and fracture in satisfactory positions and alignment on all views. However, the distal tip of the gamma nail is excluded at the film margin on all films. Skin maria isabel are incidentally noted. Fracture at the base of the lesser trochanter is again noted, unchanged. Unreviewed MTDD
[2016-11-04] MEDS ORDERED: WARFARIN SOD 5 MG TAB PO ONE (17:00)
--- NOTE | 2016-11-04 17:44 | RO ---
DATE OF PROCEDURE: 11/03/2016 An 81-year-old female who was in her normal state of health slipped on the ice and sustained a right hip intertrochanteric femur fracture, unstable variant. PAST MEDICAL HISTORY: 1. Type 2 diabetes. 2. Hypertension. 3. Prior catheterization with no current heart symptoms. ALLERGIES: PENICILLIN. Was cleared by the internal medicine team for operative intervention of the right hip. PREOPERATIVE DIAGNOSIS: POSTOPERATIVE DIAGNOSIS: Right hip intertrochanteric femur fracture. PROCEDURE PERFORMED: Right hip open reduction, internal fixation with a long Gamma nail. SURGEON: Dr. Farrukh Bernstein GINNER HELPER: None. ANESTHESIOLOGIST: Dr. Gil. BLOOD LOSS: 150 mL. FLUID RESUSCITATION: 70 mL crystalloid. COMPLICATIONS: None. INDICATIONS: An 81-year-old female with unstable proximal femur intertrochanteric fracture. After discussion of the risks and benefits of operative intervention, she elected to proceed. PROCEDURE IN DETAIL: Patient was met in the preoperative holding area. The operative site was initialed by the surgeon. IV access was verified. Consent was verified. She was taken to the operative suite, where she was prepped and draped in the usual sterile fashion in supine on a fracture table. Spinal anesthesia was chosen for safety. Fracture reduction maneuver was performed with a traction table, giving an acceptable reduction. We prepped and draped the area and made a stab incision proximal to the greater trochanter and through the tensor fascia. We advanced a guidewire into the appropriate start position in the tip of the greater trochanter and advanced it down the center of the canal. We reamed the proximal femur with the entry reamer and placed a guidewire down the center of the femur and verified its position both clinically and fluoroscopically in orthogonal planes. Once this was done, we sequentially reamed the canal to 12 mm to accommodate a 10 mm nail. We measured a nail 320 mm, and we placed the long Gamma nail over the guidewire to the appropriate position. We verified the position fluoroscopically in orthogonal planes. We placed the guidewire from the lateral aspect through the nail, into the femoral head, to the center-center position in the anterior-posterior (AP) and lateral views. We reamed the lateral cortex of the femur and placed the hip screw through the nail with a good position and using compression mode compressed the fracture to near-anatomic position. We locked the hip screw in place with a proximal locking bolt, and then we used the perfect-pechanga fluoroscopic method distally to place two interlock screws due to the instability of the fracture. The position of the fracture and hardware was verified again fluoroscopically in orthogonal planes. All wounds were irrigated copiously and closed in layers. She was dressed sterilely, awakened, and taken to the recovery room in stable condition. Postoperative plan will be weightbearing as tolerated, and she will be discharged when she can meet all of her home demands.
[2016-11-04 22:00] VITALS: BP 102/56
[2016-11-05] MEDS: PERCOCET 5MG/325MG TAB PO PRN (05:19)
[2016-11-05 06:00] VITALS: BP_SYST 158; BP_SYST 58; BP_DIAS 68
[2016-11-05 06:45] LABS: INR 1.37; MEAN CORPUSCULAR HEMOGLOBIN 29.9 pg (27.0-33.0); MEAN CORPUSCULAR HGB CONC 33.4 g/dl (32.0-36.5); MEAN CORPUSCULAR VOLUME 89.5 fl (80.0-96.0); RED CELL DISTRIBUTION WIDTH 13.5 % (11.5-14.5); WHITE BLOOD COUNT 9.2 K/mm3 (4.0-10.0)
[2016-11-05 06:56] LABS: CALCIUM LEVEL 8.1 MG/DL (8.8-10.2); CREATININE FOR GFR 1.11 MG/DL (0.55-1.02); GLOMERULAR FILTRATION RATE 50.3 (>32); POTASSIUM SERUM 3.8 MEQ/L (3.5-5.1)
[2016-11-05] MEDS: METOCLOPRAMIDE 5 MG TAB PO SCH ×4 (07:30→20:53)
[2016-11-05] MEDS: MIRALAX *UNIT DOSE* 17GM PACKET PO SCH (09:00)
[2016-11-05] MEDS: MOM 30ML SUSPENSION UDC PO SCH (09:00)
[2016-11-05] MEDS: CitaloPRAM (CeleXA) 20 MG TAB PO SCH (09:00)
[2016-11-05] MEDS: IRBESARTAN 150 MG TAB PO SCH (09:00)
[2016-11-05] MEDS: GEMFIBROZIL 600 MG TAB PO SCH ×2 (09:00→20:53)
[2016-11-05] MEDS: OMEPRAZOLE 20 MG CAP PO SCH ×2 (09:00→20:53)
[2016-11-05] MEDS: SENOKOT S TAB PO SCH ×2 (09:00→16:55)
[2016-11-05] MEDS: ASCORBIC ACID 500 MG TAB PO SCH ×2 (09:00→16:56)
[2016-11-05] MEDS: MULTIVITAMINS/MINERALS THERAP 1 TAB PO SCH (09:00)
[2016-11-05] MEDS: traMADol 50 MG TAB PO PRN ×2 (10:54→13:58)
--- NOTE | 2016-11-05 11:36 | IPNPDOC ---
Date of Service/Time 11/05/16 Progress Note SUBJECTIVE: The patient states her pain is less and was yesterday and she is able to do some movement she denies any lightheadedness dizziness chest pain shortness of breath OBJECTIVE: PHYSICAL EXAMINATION: VITAL SIGNS: Please see below. GENERAL: She is a somewhat pallorous elderly female sitting on the edge of her bed the patient does not appear to be any acute distress she is accompanied by her daughter HEENT: Pupils are equally round and reactive to light she is wearing glasses she has moist mucous membranes elevation and CVP CARDIOVASCULAR: S1 S2 regular she is not tachycardic on my exam. RESPIRATORY: Clear To auscultation. ABDOMINAL: Benign EXTREMITIES: Skin is clean dry and intact otherwise no clubbing cyanosis or edema LABORATORY DATA: Acute on chronic anemia renal function at baseline Please see below. MICROBIOLOGY: Please see below. IMAGING: As per orthopedics DVT prophylaxis ordered?: Patient is on Coumadin ASSESSMENT AND PLAN: This is a 81-year-old male with comminuted intratrochanteric fracture of the right femur postop day 2. Problem #1 comminuted intratrochanteric fracture of the right femur: PT Lundy catheter DVT prophylaxis pain management all as per orthopedic surgery. The patient appears to be doing quite well postoperatively she'll begin working with physical therapy she has tolerated the procedure quite well. Problem #2 acute on chronic anemia: Acute blood loss anemia, hemoglobin drop below 8 at this time I will transfuse her 2 units of PRBCs were symmetric this discuss consent has already been contained prior to operative procedure Problem #3 depression: The patient is on Celexa Problem #4 hypertension: Patient is normotensive at the present time we'll continue with irbesartan. Problem #5 dyslipidemia: The patient was continued on gemfibrozil. Problem #6 gastroesophageal reflux disease patient was continued on omeprazole. DISPOSITION: The patient will work with physical therapy and we will monitor her progresses if she is able to return home with family or potentially acute rehabilitation. VS, I&O, 24H, Fishbone VS, I&O, 24H, Fishbone Vital Signs Date Time Temp Pulse Resp B/P Pulse Ox O2 Delivery O2 Flow Rate FiO2 11/05/16 11:27 20 11/05/16 10:54 Room Air 11/05/16 09:00 108/68 11/05/16 06:00 99.3 98 90 11/04/16 20:05 0.0 I&O- Last 24 Hours up to 6 AM 11/05/16 06:00 Intake Total 1980 ml Output Total 725 ml Balance 1255 ml Laboratory Tests 2 11/05/16 05:51: Anion Gap 11, Blood Urea Nitrogen 27H, Creatinine 1.11H, Sodium Level 140, Potassium Level 3.8, Chloride Level 104, Carbon Dioxide Level 25, Calcium Level 8.1L, Glomerular Filtration Rate 50.3, Prothromb Time International Ratio 1.37, Prothrombin Time 17.0H Laboratory Tests 11/05/16 05:51 Calcium Level 8.1 L, Red Blood Count 2.64 L, Mean Corpuscular Volume 89.5, Mean Corpuscular Hemoglobin 29.9, Mean Corpuscular Hemoglobin Concent 33.4, Red Cell Distribution Width 13.5 CURT RAMIRES MD Nov 05, 2016 11:36
[2016-11-05] MEDS ORDERED: ACETAMINOPHEN TAB 650MG DOSE (2X325MG) PO PRN (13:15)
[2016-11-05] MEDS ORDERED: diphenhydrAMINE 25 MG CAP PO ONE (13:30)
[2016-11-05] MEDS: ONDANSETRON 4 MG TAB (S0181) PO PRN (13:57)
[2016-11-05] MEDS ORDERED: WARFARIN SOD 5 MG TAB PO SCH (17:00)
--- NOTE | 2016-11-05 17:57 | EDDOCDS ---
Physician Documentation [facility] Name: Avi Tyson Age: 81 yrs Sex: Female : 1935 Arrival Date: 11/03/2016 Time: 11:22 Bed 19 Private MD: Disposition: 11/03/16 12:51 Hospitalization ordered by Olya Dillon for Inpatient Admission. Preliminary diagnosis is Intertrochanteric fracture of femur. - Bed requested for 5 Maurer. - Status is Inpatient Admission. ms2 - Condition is Stable. - Problem is new. - Symptoms are unchanged. Historical: - Allergies: PENICILLINS; - Home Meds: 1. irbesartan 150 mg oral tab 1 tab once daily (Last dose: 11/03/2016 07:30) 2. gemfibrozil 600 mg Oral tab 1 tab 2 times per day (Last dose: 11/03/2016 07:30) 3. omeprazole 20 mg Oral cpDR 1 cap once daily (Last dose: 11/03/2016 07:30) 4. niacin 500 mg Oral Tb24 1 tab once daily (Last dose: 11/03/2016 07:30) 5. Vitamin D2 50,000 unit oral cap once monthly 6. Vitamin C 500 mg Oral tab daily (Last dose: 11/03/2016 07:30) - PMHx: Osteoporosis; Diabetes - NIDDM: controlled; Hypertension; OMEPRAZOLE; depression; Hypercholesterolemia; - PSHx: Appendectomy; Cholecystectomy; Adenoidectomy; Tonsillectomy; Tubal ligation; - Family history: Not pertinent. - Social history: No barriers to communication noted, The patient speaks fluent Irish. - : The pt / caregiver states he / she is not on anticoagulants. Home medication list is obtained from the patient. Vital Signs: 11/03 11:38 BP 132 / 96; Pulse 109; Resp 20 S; Temp 96.8(T); Weight 56.7 kg / 125 lbs (R); Height 4 ms2 ft. 10 in. (147.32 cm) (R); Pain 9/10; 14:07 BP 130 / 61; Pulse 94; Resp 20 S; Pulse Ox 96% on R/A; ms2 14:37 BP 126 / 61; Pulse 87; Resp 20 S; Temp 97.2(O); Pulse Ox 94% on R/A; Pain 2/10; ms2 16:23 BP 125 / 65; Pulse 94; Resp 16; Temp 97.5(O); Pulse Ox 94% on R/A; Pain 3/10; ld5 11:38 Body Mass Index 26.13 (56.70 kg, 147.32 cm) ms2 MDM: 11:25 IV Saline Lock ordered. sd1 11:25 morphine 4 mg IVP every 15 minutes; Document pain score/vitals after each dose (Hold if sd1 SBP < 90mmHg) x2 ordered. 11:25 Ondansetron 4 mg IVP once ordered. sd1 11:26 Hip,AP,LAT to include Pelvis Ordered. EDMS 11:26 NS 0.9% 1000 ml IV at 100 mL/hr continuous ordered. sd1 11:27 CBC with Diff Ordered. EDMS 11:27 MED Profile Ordered. EDMS 11:27 PT/INR Ordered. EDMS 11:27 Chest, 1 View Ordered. EDMS 11:27 ECG WITH READING ER PHYS+CARDIAG ordered. EDMS 12:28 Financial registration complete. lg 12:44 Hemoglobin A1c Ordered. EDMS 13:13 Admission / Observation Status ordered. EDMS 13:13 NPO DIET ordered. EDMS 13:37 [facility] Payment Agreement was scanned into [employer] and attached to record. lg 13:47 Admission Orders was scanned into [employer] and attached to record. deg 13:48 Femur Ordered. EDMS 14:45 Lundy ordered. ms2 16:20 Hip, IN O.R. Ordered. EDMS 19:32 COMPLETE BLOOD COUNT Ordered. EDMS 19:32 BASIC METABOLIC PROFILE Ordered. EDMS 11/04 09:37 Trend VS was scanned into [employer] and attached to record. gb 13:55 PCR was scanned into [employer] and attached to record. gb 11/05 09:26 T-Sheet-- Draft Copy was scanned into [employer] and attached to record. gb Administered Medications: 11/03 11:37 Drug: morphine 4 mg [morphine 4 mg/mL intravenous cartridge (1 mL)] Route: IVP; Site: rs3 right antecubital; 11:37 Drug: Ondansetron 4 mg [ondansetron HCl 2 mg/mL intravenous solution (2 mL)] Route: rs3 IVP; Site: right antecubital; 11:37 Drug: NS 0.9% 1000 ml [sodium chloride 0.9 % intravenous solution] Route: IV; Rate: 100 rs3 mL/hr; Site: right antecubital; 14:00 Drug: morphine 4 mg [morphine 4 mg/mL intravenous cartridge (1 mL)] Route: IVP; Site: ms2 right antecubital; 14:07 Follow up: BP 130 / 61; Pulse 94 bpm; Resp 20 bpm Spontaneous; Pulse Ox 96% RA ms2 Signatures: Dispatcher [employer] EDTatyana Wiggins MD MD sd1 Yeni Ardon, Silver Chaser Unit deg Hua Palacio RN RN ms2 Salena Wagner, Reg Reg gb Denia Penn, Reg Reg lg Elise Bird RN RN lmg Lucrecia Foster RN rs3 The chart was reviewed and I authenticate all verbal orders and agree with the evaluation and treatment provided.Attachments: 13:37 [facility] Payment Agreement lg 13:47 Admission Orders deg 11/05 09:26 T-Sheet-- Draft Copy gb Chart Complete MTDD
--- NOTE | 2016-11-05 17:58 | EDDOCDS ---
Nurse's Notes [facility] Name: Conor Garza Age: 81 yrs Sex: Female : 1935 Arrival Date: 11/03/2016 Time: 11:22 Bed 19 Private MD: Diagnosis: Intertrochanteric fracture of femur Presentation: 11/03 11:30 Presenting complaint: EMS states: fell wallking dog and injured right hip-no head ms2 injury --no LOC. 11:32 Presenting complaint: EMS states: given morphine 4mg and zofran 4mg at 1115. Adult ms2 Sepsis Screening: The patient does not have new or worsening altered mentation. Patient's respiratory rate is less than 22. Suicide/Homicide risk assessment- the patient denies having any suicidal and/or homicidal ideations and does not present with any other emotional, behavioral or mental health complaints. Status: Patient is not a housetrailer servicer or dependent. Transition of care: patient was not received from another setting of care. 11:32 Acuity: SHIN Level 3 ms2 11:32 Method Of Arrival: Ambulance ms2 Triage Assessment: 11:35 General: Appears distressed, ill, Behavior is crying. Pain: Pain currently is 9 out of ms2 10 on a pain scale. The patient is triaged at the bedside. See Assessment in Nurses Notes section of ED record. Neurological: Level of Consciousness is awake, alert, obeys commands. Respiratory: No deficits noted. Airway is patent Respiratory effort is even, unlabored, Respiratory pattern is regular, symmetrical. GI: Abdomen is flat, non- distended. Derm: Skin is pink, warm & dry. Musculoskeletal: Range of motion intact in all extremities. Historical: - Allergies: PENICILLINS; - Home Meds: 1. irbesartan 150 mg oral tab 1 tab once daily (Last dose: 11/03/2016 07:30) 2. gemfibrozil 600 mg Oral tab 1 tab 2 times per day (Last dose: 11/03/2016 07:30) 3. omeprazole 20 mg Oral cpDR 1 cap once daily (Last dose: 11/03/2016 07:30) 4. niacin 500 mg Oral Tb24 1 tab once daily (Last dose: 11/03/2016 07:30) 5. Vitamin D2 50,000 unit oral cap once monthly 6. Vitamin C 500 mg Oral tab daily (Last dose: 11/03/2016 07:30) - PMHx: Osteoporosis; Diabetes - NIDDM: controlled; Hypertension; OMEPRAZOLE; depression; Hypercholesterolemia; - PSHx: Appendectomy; Cholecystectomy; Adenoidectomy; Tonsillectomy; Tubal ligation; - Family history: Not pertinent. - Social history: No barriers to communication noted, The patient speaks fluent Yemeni. - : The pt / caregiver states he / she is not on anticoagulants. Home medication list is obtained from the patient. Screenin:39 Screening information is obtained from the patient. Fall risk: At risk due to ms2 immobility. Assistance ADL's: requires no assistance with activities of daily living. Abuse/DV Screen: The patient / caregiver reports he/she is: not in a situation that causes fear, pain or injury. 16:36 Nutritional screening: No deficits noted. Advance Directives: Currently, there is no ms2 health care proxy. There is an active DNR order but there is no copy available at this time. There is no living will. There is an active Power of Tobacco Stripping Machine Operator, son lisa garza. Advance directive information does not know if advance directives have been placed in a prior [facility] medical record. Further advance directive information is declined. home support is adequate. Assessment: 11:48 General: Appears uncomfortable, Behavior is cooperative. Pain: Location: right groin ms2 Pain currently is 9 out of 10 on a pain scale. Pain: Pain currently is 7 out of 10 on a pain scale. Neurological: Level of Consciousness is awake, alert, obeys commands. Respiratory: No deficits noted. Airway is patent Respiratory effort is even, unlabored, Respiratory pattern is regular, symmetrical. Derm: Skin is pink, warm & dry. Musculoskeletal: Range of motion limited in right hip. Musculoskeletal: Circulation, motion, and sensation intact Capillary refill < 3 seconds. 11:51 General: LAST ATE:0800---CINAMOMN ROLL -COFFEE. ms2 12:43 General: orthopedist in to speak with pt and family. ms2 13:17 General: Appears in no apparent distress, Behavior is cooperative. General: pt declines ms2 pain med-will request if needs. General: family with pt. Pain: Pain currently is 4 out of 10 on a pain scale. Neurological: Level of Consciousness is awake, alert, obeys commands. Respiratory: Respiratory effort is even, unlabored. Derm: Skin is pink, warm & dry. Musculoskeletal: Circulation, motion, and sensation intact Capillary refill < 3 seconds Range of motion limited in right hip. 14:08 General: Radiology aware to do femur x-ray. ms2 14:30 General: sullivan catheter inserted per order and per procedure-pt tolerated well draining ms2 yellow urine. 15:16 General: Appears in no apparent distress. Pain: Pain currently is 5 out of 10 on a pain ms2 scale. Neurological: No deficits noted. Respiratory: Respiratory effort is even, unlabored. Derm: Skin is pink, warm & dry. Musculoskeletal: Circulation, motion, and sensation intact Capillary refill < 3 seconds Range of motion limited in right hip. 16:30 General: Appears in no apparent distress, Behavior is cooperative. Pain: Pain currently ms2 is 5 out of 10 on a pain scale. Neurological: Level of Consciousness is awake, alert, obeys commands. Respiratory: No deficits noted. Airway is patent Respiratory effort is even, unlabored, Respiratory pattern is regular, symmetrical. Derm: Skin is pink, warm & dry. Musculoskeletal: Range of motion limited in right hip. 16:33 Adult Sepsis Screening: The patient does not have new or worsening altered mentation. ms2 Patient's respiratory rate is less than 22. Systolic blood pressure is greater than 100. Patient has a qSOFA score of 0- Negative Sepsis Screen. Vital Signs: 11:38 BP 132 / 96; Pulse 109; Resp 20 S; Temp 96.8(T); Weight 56.7 kg (R); Height 4 ft. 10 ms2 in. (147.32 cm) (R); Pain 9/10; 14:07 BP 130 / 61; Pulse 94; Resp 20 S; Pulse Ox 96% on R/A; ms2 14:37 BP 126 / 61; Pulse 87; Resp 20 S; Temp 97.2(O); Pulse Ox 94% on R/A; Pain 2/10; ms2 16:23 BP 125 / 65; Pulse 94; Resp 16; Temp 97.5(O); Pulse Ox 94% on R/A; Pain 3/10; ld5 11:38 Body Mass Index 26.13 (56.70 kg, 147.32 cm) ms2 ED Course: 11:23 Patient visited by Yeni Ardon, Verification Clerk. deg 11:23 Patient moved to Waiting deg 11:24 Tatyana Zaragoza MD is Attending Physician. sd1 11:24 Hua Palacio,RN is Primary Nurse. sd1 11:24 Patient moved to 19 sd1 11:24 Patient moved to Waiting deg 11:24 Patient moved to 19 sd1 11:27 Patient visited by Tatyana Zaragoza MD. sd1 11:30 IV is patent, is intact, right ac by ems. No procedures done that require assistance. ms2 11:33 IV is patent, is intact, is free of redness or swelling. solution is infusing as ms2 ordered. 11:35 Triage Initiated ms2 11:59 Patient visited by Hua Palacio,RN. ms2 12:43 Patient visited by Hua Palacio,LAUREN. ms2 12:43 PT/INR Sent. ms2 12:43 MED Profile Sent. ms2 12:43 CBC with Diff Sent. ms2 12:47 Hemoglobin A1c Sent. ms2 12:51 Olya Dillon is Hospitalizing Provider. sd1 12:59 Hip,AP,LAT to include Pelvis Returned. EDMS 12:59 Chest, 1 View Returned. EDMS 13:17 Patient visited by Hua Palacio,LAUREN. ms2 13:18 The patient / caregiver is instructed regarding the plan of care and ED course. ms2 13:18 IV is patent, is intact, is free of redness or swelling. solution is infusing as ms2 ordered. 13:37 [facility] [place] Agreement was scanned into [employer] and attached to record. lg 13:47 Admission Orders was scanned into [employer] and attached to record. deg 15:22 Femur Returned. EDMS 16:31 The patient / caregiver is instructed regarding the plan of care and ED course. ms2 16:31 IV is patent, is intact, is free of redness or swelling. solution is infusing as ms2 ordered. 19:40 EKG-ADULT Returned. EDMS 11/04 09:37 Trend VS was scanned into [employer] and attached to record. gb 13:55 PCR was scanned into [employer] and attached to record. gb 11/05 09:26 T-Sheet-- Draft Copy was scanned into [employer] and attached to record. gb Administered Medications: 11/03 11:37 Drug: morphine 4 mg [morphine 4 mg/mL intravenous cartridge (1 mL)] Route: IVP; Site: rs3 right antecubital; 11:37 Drug: Ondansetron 4 mg [ondansetron HCl 2 mg/mL intravenous solution (2 mL)] Route: rs3 IVP; Site: right antecubital; 11:37 Drug: NS 0.9% 1000 ml [sodium chloride 0.9 % intravenous solution] Route: IV; Rate: 100 rs3 mL/hr; Site: right antecubital; 14:00 Drug: morphine 4 mg [morphine 4 mg/mL intravenous cartridge (1 mL)] Route: IVP; Site: ms2 right antecubital; 14:07 Follow up: BP 130 / 61; Pulse 94 bpm; Resp 20 bpm Spontaneous; Pulse Ox 96% RA ms2 Attachments: 11/04 09:37 Trend VS gb Output: 11/03 16:23 Urine: 400.00ml (Sullivan); Total: 400.00ml. ld5 Order Results: Lab Order: CBC with Diff; SPEC'M 11/03/16 12:37 Test: WHITE BLOOD COUNT; Value: 8.5; Range: 4.0-10.0; Units: K/mm3; Status: F Test: RED BLOOD COUNT; Value: 3.60; Range: 4.00-5.40; Abnormal: Below low normal; Units: M/mm3; Status: F Test: HEMOGLOBIN; Value: 10.6; Range: 12.0-16.0; Abnormal: Below low normal; Units: g/dl; Status: F Test: HEMATOCRIT; Value: 32.6; Range: 36.0-47.0; Abnormal: Below low normal; Units: %; Status: F Test: MEAN CORPUSCULAR VOLUME; Value: 90.6; Range: 80.0-96.0; Units: fl; Status: F Test: MEAN CORPUSCULAR HEMOGLOBIN; Value: 29.5; Range: 27.0-33.0; Units: pg; Status: F Test: MEAN CORPUSCULAR HGB CONC; Value: 32.6; Range: 32.0-36.5; Units: g/dl; Status: F Test: RED CELL DISTRIBUTION WIDTH; Value: 12.5; Range: 11.5-14.5; Units: %; Status: F Test: PLATELET COUNT, AUTOMATED; Value: 321; Range: 150-450; Units: k/mm3; Status: F Test: NEUTROPHILS %; Value: 72.1; Range: 36.0-66.0; Abnormal: Above high normal; Units: %; Status: F Test: LYMPH %; Value: 19.2; Range: 24.0-44.0; Abnormal: Below low normal; Units: %; Status: F Test: MONO %; Value: 5.1; Range: 0.0-5.0; Abnormal: Above high normal; Units: %; Status: F Test: EOS %; Value: 1.4; Range: 0.0-3.0; Units: %; Status: F Test: BASO %; Value: 0.4; Range: 0.0-1.0; Units: %; Status: F Test: LARGE UNSTAINED CELL %; Value: 1.8; Range: 0.0-4.0; Units: %; Status: F Test: NEUTROPHILS #; Value: 6.1; Range: 1.8-7.7; Units: K/mm3; Status: F Test: LYMPH #; Value: 1.6; Range: 1.5-4.5; Units: K/mm3; Status: F Test: MONO #; Value: 0.4; Range: 0.0-0.8; Units: K/mm3; Status: F Test: EOS #; Value: 0.1; Range: 0.0-0.50; Units: K/mm3; Status: F Test: BASO #; Value: 0.0; Range: 0.0-0.2; Units: K/mm3; Status: F Test: LARGE UNSTAINED CELL #; Value: 0.2; Range: 0.0-0.4; Units: K/mm3; Status: F Lab Order: MED Profile; SPEC'M 11/03/16 12:37 Test: GLUCOSE, FASTING; Value: 110; Range: 83-110; Units: MG/DL; Status: F Test: BLOOD UREA NITROGEN; Value: 23; Range: 7-18; Abnormal: Above high normal; Units: MG/DL; Status: F Test: CREATININE FOR GFR; Value: 1.06; Range: 0.55-1.02; Abnormal: Above high normal; Units: MG/DL; Status: F Test: GLOMERULAR FILTRATION RATE; Value: 53.1; Range: >32; Status: F Test: SODIUM LEVEL; Value: 143; Range: 136-145; Units: MEQ/L; Status: F Test: POTASSIUM SERUM; Value: 4.2; Range: 3.5-5.1; Units: MEQ/L; Status: F Test: CHLORIDE LEVEL; Value: 107; Range: 98-107; Units: MEQ/L; Status: F Test: CARBON DIOXIDE LEVEL; Value: 27; Range: 21-32; Units: MEQ/L; Status: F Test: ANION GAP; Value: 9; Range: 8-16; Units: MEQ/L; Status: F Test: CALCIUM LEVEL; Value: 8.8; Range: 8.8-10.2; Units: MG/DL; Status: F Test Note: ; Units are mL/min/1.73 m2 Chronic Kidney Disease Staging per NKF: Stage I & II GFR >=60 Normal to Mildly Decreased Stage III GFR 30-59 Moderately Decreased Stage IV GFR 15-29 Severely Decreased Stage V GFR <15 Very Little GFR Left ESRD GFR <15 on CRYPTOLOGIC TECHNICIAN OPERATOR/ANALYST Lab Order: PT/INR; SPEC'M 11/03/16 12:37 Test: PROTHROMBIN TIME; Value: 13.7; Range: 12.3-14.5; Units: SECONDS; Status: F Test: INR; Value: 1.04; Status: F Test Note: ; THERAPUTIC HUMAN INR VALUES INDICATIONS NORMAL RANGES PROPHYLAXIS/TREATMENT OF: VENOUS THROMBOSIS 2.0-3.0 PULMONARY EMBOLISM 2.0-3.0 PREVENTION OF SYSTEMIC EMBOLISM FROM: TISSUE HEART VALVES 2.0-3.0 ACUTE MYOCARDIAL INFARCTION 2.0-3.0 VALVULAR HEART DISEASE 2.0-3.0 ATRIAL FIBRILLATION 2.0-3.0 MECHANICAL VALVES(HIGH RISK) 2.5-3.5 RECURRENT MYOCARDIAL INFARCTION 2.5-3.5 Lab Order: Hemoglobin A1c; SPEC'M 11/03/16 00:00 Test: HEMOGLOBIN A1c; Value: 6.1; Range: 4.5-6.2; Units: %; Status: F Test: ESTIMATED AVERAGE GLUCOSE; Value: 128; Range: 60-110; Abnormal: Above high normal; Units: MG/DL; Status: F Radiology Order: Hip,AP,LAT to include Pelvis Test: Hip,AP,LAT to include Pelvis REASON FOR EXAMINATION: Trauma; Right hip series to include AP and cross-table lateral views right hip, and AP; pelvis; ; Comparison : None; ; Findings: There is a comminuted intertrochanteric fracture right hip with a free; avulsion fragment involving the lesser trochanter. 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 There is no pelvic fracture or pelvic; diastasis. The left hip is without fracture or displacement.; ; Impression: Comminuted displaced intertrochanteric fracture of the right hip; ; The remainder of the bony pelvis is intact. Left hip is without fracture or; displaced; ; ; ; ; ; ; Signed by; Sandra Harvey MD 11/03/2016 12:27 P; Radiology Order: Chest, 1 View Test: Chest, 1 View REASON FOR EXAMINATION: perop; AP supine chest radiograph 11/03/2016; ; Indication: Preop; ; Comparison: PA and lateral chest 01/16/2013 performed at [facility]; ; Findings: Cardiomediastinal silhouette is normal. Lungs are clear bilaterally.; There is eventration of the medial aspect of the right hemidiaphragm , with; slight progression when compared with prior study .; ; There are mild degenerative changes in thoracic spine; ; Impression: no acute cardiopulmonary process; ; ; Signed by; Sandra Havrey MD 11/03/2016 12:31 P; Radiology Order: EKG-ADULT Test: EKG-ADULT REASON FOR EXAMINATION: preop; Stationary ECG Study; 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; : 1935 Requested By: Tatyana Zaragoza; Order Number: [id number] Reading MD: Tatyana Zaragoza; Measurements; Intervals [place]; Rate: 77 P: 76; AK: 129 QRS: 0; QRSD: 84 T: -5; QT: 391; QTc: 443; Interpretive Statements; SINUS RHYTHM; NSTTW ABNORMALITY; DELAYED R PROGESSION; NO PRIOR FOR COMPARISON; Electronically Signed On 11-03-2016 19:09:49 EST by Tatyana Zaragoza; Radiology Order: Femur Test: Femur REASON FOR EXAMINATION: FRACTURE; RIGHT FEMUR:; ; AP and lateral views of the right femur are performed.; ; A comminuted intertrochanteric fracture is again noted of the proximal right; femur with varus deformity. The more distal femur is intact. There appears to be; chondrocalcinosis at the knee joint. AP views are somewhat limited due to; limitations with patient positioning.; ; ; Signed by; Lucio Oshea MD 11/03/2016 04:56 P; Outcome: 12:51 Decision to Hospitalize by Provider. sd1 16:31 Discharge Assessment: patient administered narcotics - yes. Patient was admitted to the [address] or transferred to another facility. The following High Risk Discharge criteria are identified: None. Admitted to OR accompanied by nurse, accompanied by tech, family with patient, via stretcher, with chart. Condition: stable. CT Study completed. Property given to family member, daughter. 16:56 Patient left the ED. [facility] Signatures: Dispatcher [employer] EDMS Tatyana Zaragoza MD MD sd1 Yeni Ardon, Verification Clerk Unit deg Hua Palacio RN RN ms2 Bernard, Salena, Reg Reg gb Denia Penn, Reg Reg lg Lucrecia Foster RN RN rs3 Trisha Velazco,RN RN ld5 Corrections: (The following items were deleted from the chart) 11:51 11:38 BP 132 / 96; Pulse 109bpm; Resp 20bpm; Spontaneous; 56.7 kg Reported; Height 4 ms2 ft. 10 in. Reported; BMI: 26.1; Pain 9/10; ms2 Chart Complete MTDD
[2016-11-05 22:00] VITALS: BP 110/59
[2016-11-06] MEDS: traMADol 50 MG TAB PO PRN ×3 (05:41→17:19)
[2016-11-06 06:00] VITALS: BP 107/55
[2016-11-06 06:52] LABS: MEAN CORPUSCULAR HEMOGLOBIN 29.7 pg (27.0-33.0); MEAN CORPUSCULAR HGB CONC 34.1 g/dl (32.0-36.5); MEAN CORPUSCULAR VOLUME 87.1 fl (80.0-96.0); RED CELL DISTRIBUTION WIDTH 13.7 % (11.5-14.5); WHITE BLOOD COUNT 9.3 K/mm3 (4.0-10.0)
[2016-11-06 06:58] LABS: INR 2.32
[2016-11-06 07:07] LABS: ANION GAP 8 MEQ/L (8-16); BLOOD UREA NITROGEN 19 MG/DL (7-18); CALCIUM LEVEL 7.9 MG/DL (8.8-10.2); CARBON DIOXIDE LEVEL 26 MEQ/L (21-32); CHLORIDE LEVEL 107 MEQ/L (98-107); CREATININE FOR GFR 0.94 MG/DL (0.55-1.02); GLOMERULAR FILTRATION RATE > 60.0 (>32); GLUCOSE, FASTING 114 MG/DL (83-110); POTASSIUM SERUM 4.3 MEQ/L (3.5-5.1); SODIUM LEVEL 141 MEQ/L (136-145)
[2016-11-06] MEDS: IRBESARTAN 150 MG TAB PO SCH (07:18)
[2016-11-06] MEDS: MOM 30ML SUSPENSION UDC PO SCH (08:34)
[2016-11-06] MEDS: MIRALAX *UNIT DOSE* 17GM PACKET PO SCH (08:34)
[2016-11-06] MEDS: METOCLOPRAMIDE 5 MG TAB PO SCH ×4 (08:35→20:31)
[2016-11-06] MEDS: CitaloPRAM (CeleXA) 20 MG TAB PO SCH (08:35)
[2016-11-06] MEDS: SENOKOT S TAB PO SCH ×2 (08:35→20:31)
[2016-11-06] MEDS: MULTIVITAMINS/MINERALS THERAP 1 TAB PO SCH (08:36)
[2016-11-06] MEDS: OMEPRAZOLE 20 MG CAP PO SCH ×2 (08:37→20:30)
[2016-11-06] MEDS: ASCORBIC ACID 500 MG TAB PO SCH (08:37)
[2016-11-06] MEDS: GEMFIBROZIL 600 MG TAB PO SCH ×2 (08:37→20:30)
[2016-11-06] MEDS ORDERED: MAGNESIUM CITRATE 300 ML BTL PO ONE (10:00)
--- NOTE | 2016-11-06 10:02 | IPNPDOC ---
Date of Service/Time 11/06/16 Progress Note SUBJECTIVE: The patient tells me she was able to get up and go to the bathroom yesterday and sit in the chair but otherwise she is not on a significant amount of activity. The patient tells me she feels better after receiving a blood transfusion yesterday OBJECTIVE: PHYSICAL EXAMINATION: VITAL SIGNS: Please see below. GENERAL: She is a elderly female lying in bed the patient does not appear to be any acute distress she is accompanied by her daughter HEENT: Pupils are equally round and reactive to light she is wearing glasses she has moist mucous membranes elevation and CVP CARDIOVASCULAR: S1 S2 regular she is not tachycardic on my exam. RESPIRATORY: Clear To auscultation. ABDOMINAL: Benign EXTREMITIES: Skin is clean dry and intact otherwise no clubbing cyanosis or edema dressings are clean dry and intact LABORATORY DATA: Positive response to blood otherwise Please see below. MICROBIOLOGY: Please see below. IMAGING: As per orthopedics DVT prophylaxis ordered?: Patient is on Coumadin ASSESSMENT AND PLAN: This is a 81-year-old male with comminuted intratrochanteric fracture of the right femur postop day 3. Problem #1 comminuted intratrochanteric fracture of the right femur: PT Lundy catheter DVT prophylaxis pain management all as per orthopedic surgery. The patient appears to be doing quite well postoperatively she'll begin working with physical therapy she has tolerated the procedure quite well. Problem #2 acute on chronic anemia: Acute blood loss anemia, she is status post 2 units with positive response we'll continue to monitor while she is on anticoagulation. Problem #3 depression: The patient is on Celexa Problem #4 hypertension: Patient is normotensive at the present time we'll continue with irbesartan. Problem #5 dyslipidemia: The patient was continued on gemfibrozil. Problem #6 gastroesophageal reflux disease patient was continued on omeprazole. DISPOSITION: The patient will work with physical therapy and we will monitor her progresses if she is able to return home with family or potentially acute rehabilitation. VS, I&O, 24H, Fishbone VS, I&O, 24H, Fishbone Vital Signs Date Time Temp Pulse Resp B/P Pulse Ox O2 Delivery O2 Flow Rate FiO2 11/06/16 07:18 107/55 11/06/16 06:11 18 11/06/16 06:00 99.2 96 98 Room Air 11/05/16 19:05 0.0 I&O- Last 24 Hours up to 6 AM 11/06/16 06:00 Intake Total 2150 ml Output Total 1300 ml Balance 850 ml Laboratory Tests 2 11/06/16 06:32: Anion Gap 8, Blood Urea Nitrogen 19H, Creatinine 0.94, Sodium Level 141, Potassium Level 4.3, Chloride Level 107, Carbon Dioxide Level 26, Calcium Level 7.9L, Glomerular Filtration Rate > 60.0, Prothromb Time International Ratio 2.32 , Prothrombin Time 25.5H Laboratory Tests 11/06/16 06:32 Calcium Level 7.9 L, Red Blood Count 3.28 L, Mean Corpuscular Volume 87.1, Mean Corpuscular Hemoglobin 29.7, Mean Corpuscular Hemoglobin Concent 34.1, Red Cell Distribution Width 13.7 CURT RAMIRES MD Nov 06, 2016 10:02
[2016-11-06 14:00] VITALS: BP 113/68
[2016-11-06] MEDS ORDERED: MAGNESIUM CITRATE 300 ML BTL PO PRN (14:00)
[2016-11-06 22:00] VITALS: BP 116/68
[2016-11-07 06:00] VITALS: BP 100/58
[2016-11-07] MEDS: traMADol 50 MG TAB PO PRN ×2 (06:03→12:15)
[2016-11-07 06:40] LABS: MEAN CORPUSCULAR HEMOGLOBIN 29.7 pg (27.0-33.0); MEAN CORPUSCULAR HGB CONC 33.5 g/dl (32.0-36.5); MEAN CORPUSCULAR VOLUME 88.9 fl (80.0-96.0); RED CELL DISTRIBUTION WIDTH 13.6 % (11.5-14.5); WHITE BLOOD COUNT 9.5 K/mm3 (4.0-10.0)
[2016-11-07 06:45] LABS: INR 1.86
[2016-11-07 06:52] LABS: CALCIUM LEVEL 8.4 MG/DL (8.8-10.2); CREATININE FOR GFR 0.98 MG/DL (0.55-1.02); GLOMERULAR FILTRATION RATE 58.1 (>32); POTASSIUM SERUM 4.4 MEQ/L (3.5-5.1)
[2016-11-07] MEDS ORDERED: TRAM50TA2 PO ×2 (07:26→08:19)
[2016-11-07] MEDS: SENOKOT S TAB PO SCH (08:04)
[2016-11-07] MEDS: GEMFIBROZIL 600 MG TAB PO SCH (08:04)
[2016-11-07] MEDS: METOCLOPRAMIDE 5 MG TAB PO SCH ×2 (08:04→12:13)
[2016-11-07] MEDS: CitaloPRAM (CeleXA) 20 MG TAB PO SCH (08:05)
[2016-11-07] MEDS: ASCORBIC ACID 500 MG TAB PO SCH (08:05)
[2016-11-07] MEDS: MULTIVITAMINS/MINERALS THERAP 1 TAB PO SCH (08:08)
[2016-11-07] MEDS: OMEPRAZOLE 20 MG CAP PO SCH (08:08)
[2016-11-07] MEDS ORDERED: COUM2.5T11 PO (08:19)
[2016-11-07 08:33] VITALS: BP 100/58
[2016-11-07] MEDS: MIRALAX *UNIT DOSE* 17GM PACKET PO SCH (08:33)
[2016-11-07] MEDS: MOM 30ML SUSPENSION UDC PO SCH (08:33)
[2016-11-07] MEDS: IRBESARTAN 150 MG TAB PO SCH (08:33)
[2016-11-07 14:00] VITALS: BP 130/74
[2016-11-07] MEDS ORDERED: WARFARIN SOD 2.5 MG TAB PO ONE (17:00)
--- NOTE | 2016-11-08 10:06 | DSES ---
DATE OF ADMISSION: 11/03/2016 DATE OF DISCHARGE: 11/07/2016 DISCHARGE DIAGNOSIS: Comminuted intertrochanteric fracture of the right femur. SECONDARY DIAGNOSES: 1. Acute on chronic anemia. 2. Acute blood loss anemia. 3. Depression. 4. Hypertension. 5. Dyslipidemia. 6. Gastroesophageal reflux disease (GERD). HOSPITAL COURSE: The patient is an 81-year-old female who had a mechanical fall and presented to the emergency room and was found to have a comminuted intertrochanteric fracture of the right femur. The patient was seen in consultation by Dr. Bernstein, who did surgical repair on 11/03/2016. She was admitted to the medical/surgical floor. She was continued on her home medications for her chronic medical problems. Postoperatively, she did have some acute blood loss related to the procedure. Her hemoglobin and hematocrit did dip below 8. She did receive 2 units with a positive response and her counts remained stable following this, in the face of anticoagulation with Coumadin postoperatively. The patient tolerated the procedure well and at this time is found to be stable for discharge to rehabilitation. SUBJECTIVE: Today, the patient reports that she is feeling well. Has no complaints. She tells me that she was able to walk several feet yesterday. OBJECTIVE: VITAL SIGNS: Temperature 97.8, pulse 99, respiratory rate 18, blood pressure 100/58, oxygen saturation 92% on room air. GENERAL: She is a very pleasant, elderly female sitting up in bed. She is accompanied by her daughter. The patient is in no distress. HEENT: Cranial nerves II through XII are grossly intact. She is wearing bifocals. She has moist mucous membranes. CARDIOVASCULAR EXAMINATION: S1, S2 regular. She is not tachycardic on my examination. RESPIRATORY EXAMINATION: Clear. ABDOMINAL EXAMINATION: Benign. EXTREMITIES: Her dressing is clean, dry and intact. LABORATORY STUDIES: WBC 9.5, hemoglobin 10.0, hematocrit 29.9, platelet count 253. Chemistry panel: Sodium 139, potassium 4.4, chloride 104, bicarbonate 24, BUN 18, creatinine 0.9, INR is 1.8 today. ASSESSMENT AND PLAN: This is an 81-year-old female status post mechanical fall with comminuted intertrochanteric fracture status post repair, postoperative day four. 1. Comminuted intertrochanteric fracture, postoperative day four. Orthopedic surgery's help is greatly appreciated. The patient is cleared for discharge to Physical Medicine and Rehabilitation (PM R). Lundy catheter has been discontinued. She is on Coumadin for deep vein thrombosis (DVT) prophylaxis. She is working with physical therapy (PT). Her pain is well controlled. 2. Acute on chronic anemia. Acute blood loss anemia. She is status post 2 units of packed red blood cells with a positive response and she is tolerating it well. There is no evidence of ongoing active bleeding. Her counts have remained stable. 3. Depression. The patient is on Celexa. 4. Hypertension. The patient is normotensive. She is on irbesartan. 5. Dyslipidemia. The patient is on gemfibrozil. 6. Gastroesophageal reflux disease (GERD). The patient is on omeprazole. DISPOSITION: The patient is being discharged to PM R. She is to followup with Dr. Muniz around 11/17/2016/ Followup with her primary care provider in 7 days. She is to walk with a walker. Weight bearing as tolerated with a walker. Her diet is a 2 gram sodium diet. Wound care is Optifoam. DISCHARGE MEDICATIONS: Medications at the time of discharge: - tramadol 50 mg one to two tablets every four hours as needed for pain - Coumadin 2.5 mg as directed - vitamin C as per the patient 500 mg daily - citalopram 40 mg daily - gemfibrozil 600 mg twice a day - Niacin flush free 500 mg every evening - irbesartan 150 mg daily - omeprazole 20 mg daily - Turbovite tablet daily - vitamin D 50,000 units every month on the last Monday Greater than 30 minutes was spent organizing disposition.
== END 2016-11-07 15:00 | DRG 481 ==
LOC: M ED 11:22 → M MS5PR 13:09 → M ED INP 13:10 → M MS5PR 22:30
PROVIDERS: ADMIT Internal Medicine; ATTEND Internal Medicine
PROC: 0QS606Z Reposition Right Upper Femur with Intramedullary Internal Fixation Device, Open Approach (ICD-10-PCS; principal; 2016-11-03 13:29)
PROC: 30233N1 Transfusion of Nonautologous Red Blood Cells into Peripheral Vein, Percutaneous Approach (ICD-10-PCS; 2016-11-05)
DX: S72.141A Displaced intertrochanteric fracture of right femur, initial encounter for closed fracture (principal); D62 Acute posthemorrhagic anemia; E11.9 Type 2 diabetes mellitus without complications; I10 Essential (primary) hypertension; F32.9 Major depressive disorder, single episode, unspecified; E78.5 Hyperlipidemia, unspecified; K21.9 Gastro-esophageal reflux disease without esophagitis; M81.0 Age-related osteoporosis without current pathological fracture; Z79.899 Other long term (current) drug therapy; Z88.0 Allergy status to penicillin; W00.0XXA Fall on same level due to ice and snow, initial encounter; Y92.480 Sidewalk as the place of occurrence of the external cause; Y93.K1 Activity, walking an animal; Y99.9 Unspecified external cause status

== ENCOUNTER 2016-11-07 13:06 | Inpatient (IN) | payer MEDICARE, BC, OTHER ==
[~2016-11-07] VITALS: Ht 147.3 cm; Wt 64.5 kg
[~2016-11-07 13:06] MED LIST: CITA40TA4 PO; COUM2.5T11 PO; DRIS50002 PO; GEMF600T PO; IRBE150T12 PO; NIACCAP PO; OMEP20CA3 PO; TAB-TAB PO; TRAM50TA2 PO; VITA500T88 PO
[2016-11-07 15:00] VITALS: BP 108/64
[2016-11-07] MEDS ORDERED: MOM 30ML SUSPENSION UDC PO PRN (15:15)
[2016-11-07] MEDS ORDERED: MIRALAX *UNIT DOSE* 17GM PACKET PO PRN (15:15)
--- NOTE | 2016-11-07 15:42 | HPEPDOC ---
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 Thereve been no significant changes in the patients condition since the preadmission screening. HISTORY OF PRESENT ILLNESS: Patient is an 81-year-old woman with a history of diabetes and osteoporosis who sustained a mechanical fall on 11/03/2016. Patient reports walking her dog and slipping on the ice onto her right side. She was unable to get up from the floor. She was brought to [facility] by EMS where she was found to have a comminuted displaced right intertrochanteric fracture. She underwent an open reduction internal fixation with long gamma nail on 11/03/[address] Bernstein. Postoperative course was notable for significant anemia requiring transfusion of 2 units of packed red blood cells. Due to significant decline in the patients baseline functional status and need for continued medical care, recommendation was for acute rehabilitation. On 11/07/2016 the patient was deemed stable for discharge to [facility] inpatient rehabilitation unit. PAST MEDICAL HISTORY: Hypertension Hypercholesteremia Diabetes mellitus, diet controlled Osteoporosis Depression Gastroesophageal reflux disease PAST SURGICAL HISTORY: Cholecystectomy Tubal ligation Adenoidectomy/tonsillectomy Appendectomy ALLERGIES: Penicillin MEDICATIONS: Coumadin 2.5 mg 1 Magnesium citrate 150 mL Times 1 Acetaminophen 650 mg every 4 hours when necessary for pain or fever Tramadol 100 mg every 6 hours when necessary for severe pain Tramadol 50 mg every 4 hours when necessary for moderate pain Reglan 5 mg before meals and at bedtime Vitamin C 500 mg daily Celexa 40 mg daily Avapro 150 mg daily Multivitamin 1 tab by mouth daily MiraLAX 1 packet by mouth daily Milk of magnesia 30 mL daily Senokot-S 1 tab by mouth twice a day Lopid 600 mg by mouth twice a day Omeprazole 20 mg by mouth twice a day Morphine sulfate 2 mg IV every 2 hours when necessary Zofran 4 mg IV every 4 hours when necessary FAMILY HISTORY: Patient states her father was in alcohol and in his 60s of a heart attack. His her mother in her 90s, she was unsure of cause of but didnt her mother did suffer from dementia. Patient states she left her home when she was 17 years old and lived with a note of the family secondary to her fathers alcoholism. SOCIAL HISTORY: Patient is and lives with her in a one-story house. There are 2 steps to enter. She has 6 children, 4 sons and 2 daughters. She states she tried smoking all when she was 19 years old, but never smoked regularly. She denies use of alcohol or illicit drugs, past or present. Review of Systems: General: no chills, +fatigue, no weight changes. Eyes: no change of vision, + trifocals. Ears, Nose & Throat: no sore throat, decreased hearing or nasal discharge. Cardiovascular: no chest pain, claudication, syncopal episodes. Chronic intermittent lower limb edema, usually at the end of the day. Pul: no cough, SOB, orthopnea. GI: no abdominal pain, N/V, C/D, BRBPR/ tarry stools, incontinence. Last bowel movement was yesterday. Genitourinary: no dysuria. Gynecological: post-menopausal . Musculoskeletal: no back/neck/ joint pain, no muscle pain. Neurological: no numbness, paresthesias, no tremors , progressive weakness, seizures, MATHEWS. Hematological: No bleeding disorders. Required transfusion in the past, once after one with the of one of her children, and once after gallbladder surgery .Skin: no rashes. Psychiatric: no anxiety, behavioral issues. VITAL SIGNS: Temperature 98.5F, pulse 102, respiratory rate of 18, blood pressure 108/64, 94% saturation on room air PHYSICAL EXAMINATION: GENERAL: Well nourished, well developed, sitting up in chair, no acute distress. HEENT: Normocephalic, atraumatic. No facial droop. No lymphadenopathy. No jugular venous distention (JVD). PERRL, EOMI CARDIOVASCULAR: S1, S2, regular rate. Mild diffuse swelling in the right lower limb otherwise no significant edema on the left side. No calf tenderness bilaterally. LUNGS: Clear to auscultation bilaterally, no wheezing rhonchi or rales. ABDOMEN: Soft, nontender, nondistended. Positive normoactive bowel sounds throughout. MUSCULOSKELETAL: Manual muscle testin/5 strength bilateral upper limb and left lower limb in all major muscle groups. 2/5 right hip flexors, 4/5 right knee extension and flexion, 5/5 right dorsiflexion plantar flexion and EHL. Sensation: Intact to soft touch bilateral upper and lower limbs. Deep tendon reflexes: Unable to elicit biceps or patellar bilaterally NEUROLOGICAL: Alert and oriented x 3. Answers all questions appropriately. Memory intact. Able to follow commands without difficulty. SKIN: No skin breakdown. LABORATORY DATA: : WBC 9.5, hemoglobin 10.0, hematocrit 29.9, platelets 253, sodium 139, potassium 4.4, chloride 104, carbon dioxide 28, BUN 18, creatinine 0.98, GFR 58.1, glucose 97, PTT 21.5, INR 1.86. IMAGING: Hip x-ray on 11/03/2016: Comminuted, displaced intertrochanteric fracture of the right hip. Chest x-ray 11/03/2016: No acute cardiopulmonary process. FUNCTIONAL STATUS: Premorbid: Independent with ADLs and ambulation ASSESSMENT AND PLAN: 1. Right intertrochanteric fracture status post ORIF: Patient is weightbearing as tolerated. Shell undergo thorough physical and occupational therapy evaluations followed by daily intensive therapy. Rehabilitation nursing for bladder, bowel, medication management and wound care. 2. DVT prophylaxis: Coumadin, dose by ANEUDY Chun of the orthopedic surgery service. Well also provide SCD and STEFFEN tejeda. 3. Anemia, acute blood loss: Patient is status post transfusion of 2 units of packed red blood cells. Will add on iron studies with morning labs. Further treatment as indicated 4. Diabetes mellitus: Apparently patient had trialed metformin but had adverse side effect (acute kidney injury). She is currently diet controlled.. Well provide patient with a car consistent diet. Adjustments as needed. 5. Hypertension: Will maintain patient on her current antihypertensive ibesartan. Adjustments as needed 6. Diet/nutrition: Will obtain a prealbumin with morning labs. As above, car consistent diet. Nutritional supplements as indicated. 7. Pain: Patient reports a trial of Percocet which cause nausea. She is currently on tramadol with adequate pain control, no adverse side effects. We ll maintain patient on tramadol with caution not to exceed 300 mg per 24-hour period. Will supplement with acetaminophen as needed. Adjustments as needed. POST ADMISSION PHYSICIAN EVALUATION: On evaluation of the patient today there' ve been no significant medical issues or functional changes as compared to those noted in the preadmission screening document. This patient's inpatient rehabilitation remains necessary in light of the above conditions. The patient' s medical condition requires specialized care with physicians specially trained in physical medicine rehabilitation. The patient is capable motivated to participate in a minimum of 3 hours of therapy daily, 5 days minimum per week, and requires intensive inpatient rehabilitation to improve their functional status so that they can be safely to discharge back to their home. PROGNOSIS: Good ESTIMATED LENGTH OF STAY: 7 days. \ Vital Signs Vital Sign - Last 24 Hours 11/07/16 15:00 Temp 98.5 Pulse 102 Resp 18 B/P 108/64 Pulse Ox 94 O2 Delivery Room Air Home Medications Scheduled (Tab-A-Viji) 1 Tab Tab 1 TAB PO DAILY (Reported) Ascorbic Acid (Vitamin C) 500 Mg Tab 500 MG PO DAILY (Reported) Citalopram Hydrobromide (Citalopram Hydrobromide) 40 Mg Tab 40 MG PO DAILY ( Reported) Gemfibrozil (Gemfibrozil) 600 Mg Tab 600 MG PO BID (Reported) Inositol Niacinate (Inos Hexan (Niacin Flush Free) 500 Mg Cap 500 MG PO QPM ( Reported) Irbesartan (Irbesartan) 150 Mg Tab 150 MG PO DAILY (Reported) Omeprazole (Omeprazole) 20 Mg Cap 20 MG PO DAILY (Reported) Vitamin D (Drisdol) 50,000 Unit Cap 50,000 UNIT PO QMONTH (Reported) LAST MONDAY OF EVERY MONTH Warfarin Sod (Coumadin) 2.5 Mg Tab 1 TAB PO ASDIRECTED MDD = 6 tabs Scheduled PRN Tramadol HCl (Tramadol HCl) 50 Mg Tab 1-2 TAB PO Q4H PRN PRN PAIN MDD = 8 Tramadol HCl (Tramadol HCl) 50 Mg Tab 1-2 TAB PO Q4H PRN PRN PAIN MDD = 8 Allergies Coded Allergies: Penicillins (Unverified Allergy, Unknown, HIVES, 11/03/16) JAGJIT HAN MD Nov 07, 2016 15:41
[2016-11-07] MEDS ORDERED: WARFARIN SOD 2.5 MG TAB PO ONE (17:00)
[2016-11-07] MEDS: METOCLOPRAMIDE 5 MG TAB PO SCH ×2 (17:40→20:48)
[2016-11-07 20:00] VITALS: BP 118/65
[2016-11-07] MEDS: SENNA 8.6 MG TAB (SENOKOT) PO SCH (20:48)
[2016-11-07] MEDS: traMADol 50 MG TAB PO PRN (20:48)
[2016-11-07] MEDS: DOCUSATE SODIUM 100 MG CAP PO SCH (20:48)
[2016-11-07] MEDS: GEMFIBROZIL 600 MG TAB PO SCH (20:48)
[2016-11-08] MEDS: traMADol 50 MG TAB PO PRN ×4 (05:54→20:15)
[2016-11-08 06:00] VITALS: BP 128/76
[2016-11-08 06:45] LABS: MEAN CORPUSCULAR HEMOGLOBIN 29.6 pg (27.0-33.0); MEAN CORPUSCULAR HGB CONC 33.2 g/dl (32.0-36.5); RED CELL DISTRIBUTION WIDTH 13.4 % (11.5-14.5); WHITE BLOOD COUNT 10.6 K/mm3 (4.0-10.0)
[2016-11-08 06:47] LABS: INR 1.68
[2016-11-08 07:03] LABS: ANION GAP 9 MEQ/L (8-16); BLOOD UREA NITROGEN 16 MG/DL (7-18); CALCIUM LEVEL 8.4 MG/DL (8.8-10.2); CARBON DIOXIDE LEVEL 29 MEQ/L (21-32); CHLORIDE LEVEL 100 MEQ/L (98-107); CREATININE FOR GFR 0.92 MG/DL (0.55-1.02); FERRITIN 252 NG/ML (8-252); GLOMERULAR FILTRATION RATE > 60.0 (>32); GLUCOSE, FASTING 97 MG/DL (83-110); PERCENT SATURATION 11.4 % (13.2-37.4); POTASSIUM SERUM 4.2 MEQ/L (3.5-5.1); SODIUM LEVEL 138 MEQ/L (136-145); TOTAL IRON BINDING CAPACITY 255 UG/DL (250-450)
[2016-11-08] MEDS: CitaloPRAM (CeleXA) 20 MG TAB PO SCH (08:10)
[2016-11-08] MEDS: GEMFIBROZIL 600 MG TAB PO SCH ×2 (08:10→20:14)
[2016-11-08] MEDS: OMEPRAZOLE 20 MG CAP PO SCH (08:10)
[2016-11-08] MEDS: DOCUSATE SODIUM 100 MG CAP PO SCH ×2 (08:10→20:14)
[2016-11-08] MEDS: METOCLOPRAMIDE 5 MG TAB PO SCH ×4 (08:10→20:15)
[2016-11-08] MEDS: IRBESARTAN 150 MG TAB PO SCH (08:11)
[2016-11-08] MEDS ORDERED: ASCORBIC ACID 500 MG TAB PO SCH (09:00)
[2016-11-08] MEDS: FERROUS GLUCONATE 324 MG TAB PO SCH ×2 (09:28→20:14)
[2016-11-08 13:18] LABS: FOLATE 18.8 NG/ML (>5.4); VITAMIN B12 LEVEL 431 PG/ML (247-911)
[2016-11-08 14:00] VITALS: BP 105/57
--- NOTE | 2016-11-08 16:46 | IPNPDOC ---
Belt Measurer Progress Note PROGRESS NOTE DATE OF ADMISSION: 11/07/2016 DATE OF SERVICE: 11/08/2016 IDENTIFICATION STATEMENT: 81-year-old woman with right intra-trochanteric fracture status post ORIF admitted for comprehensive integrated inpatient rehabilitation. PAST MEDICAL HISTORY: Hypertension Hypercholesteremia Diabetes mellitus, diet controlled Osteoporosis Depression Gastroesophageal reflux disease PAST SURGICAL HISTORY: Cholecystectomy Tubal ligation Adenoidectomy/tonsillectomy Appendectomy ALLERGIES: Penicillin MEDICATIONS: Coumadin daily Acetaminophen 650 mg every 4 hours when necessary for pain or fever Tramadol 100 mg every 6 hours when necessary for severe pain Tramadol 50 mg every 6 hours when necessary for moderate pain Reglan 5 mg before meals and at bedtime Vitamin C 500 mg daily Celexa 40 mg daily Avapro 150 mg daily Multivitamin 1 tab by mouth daily MiraLAX 1 packet by mouth daily prn Milk of magnesia 30 mL daily prn Senna 1 tab po qhs Colace 100mg bid Lopid 600 mg by mouth twice a day Omeprazole 20 mg by mouth twice a day SUBJECTIVE: Patient without complaints. Pain adequately controlled. Slept well. Denies any chest pain, shortness of breath, nausea vomiting, lightheadedness, constipation diarrhea, or dysuria. VITAL SIGNS: Temperature 97.6F, pulse 95, respiratory rate 18, blood pressure 105/57, 94% RA PHYSICAL EXAMINATION: GENERAL: Well nourished, well developed, sitting up in chair, no acute distress. HEENT: Normocephalic, atraumatic, PERRL, EOMI CARDIOVASCULAR: S1, S2, regular rate. Mild diffuse swelling in the right lower limb otherwise no significant edema on the left side. No calf tenderness bilaterally. LUNGS: Clear to auscultation bilaterally, no wheezing rhonchi or rales. ABDOMEN: Soft, nontender, nondistended. Positive normoactive bowel sounds throughout. MUSCULOSKELETAL: MMT: 5/5 strength bilateral upper limb and left lower limb in all major muscle groups. 2/5 right hip flexors, 4/5 right knee extension and flexion, 5/5 right dorsiflexion plantar flexion and EHL. NEUROLOGICAL: Alert and oriented x 3. Answers all questions appropriately. Able to follow commands without difficulty. SKIN: right lateral hip surgical site C/I w maria isabel. LABORATORY DATA: 11/08/16 reviewed, see below IMAGING: Hip x-ray on 11/03/2016: Comminuted, displaced intertrochanteric fracture of the right hip. Chest x-ray 11/03/2016: No acute cardiopulmonary process. FUNCTIONAL STATUS: Premorbid: Independent with ADLs and ambulation ASSESSMENT AND PLAN: 1. Right intertrochanteric fracture status post ORIF: WBAT. Continue daily physical and occupational therapy. Rehabilitation nursing for bladder, bowel, medication management and wound care. 2. DVT prophylaxis: Coumadin, dose by ANEUDY Chun of the orthopedic surgery service. Continue SCD and STEFFEN hose. 3. Anemia, acute blood loss: S/p transfusion of 2 units of packed red blood cells. ~stable. Iron deficiency. Start iron supplementation. 4. Diabetes mellitus: Diet controlled. Continue carb consistent diet. 5. Hypertension: Adequately controlled. Maintain ibesartan. Adjustments as needed 6. Diet/malnutrition: Prealbumin low. Carb consistent diet. Glucerna supplements. 7. Pain: Adequately controlled. Continue APA and tramadol as needed. Intermittent ice. INTERDISCIPLINARY CARE and DISCHARGE PLANNING 1. The patient continues to require 24-hour rehabilitation nursing and physician management 2. The patient continues to benefit from current level of interdisciplinary care 3. Post discharge follow-up medical appointments: PCP, orthopedics. 4. Team conference dates: 11/10/16 5. Anticipated discharge date: TBD 6. Anticipated discharge location: Home 7. Anticipated discharge needs: HHS: PT, OT, RN, Bath Aide. Equipment needs: TBD. / Vital Signs Vital Sign - Last 24 Hours 11/07/16 11/07/16 11/08/16 11/08/16 20:00 20:48 05:54 06:00 Temp 99.4 97.9 Pulse 105 94 Resp 20 18 18 18 B/P 118/65 128/76 Pulse Ox 92 20 O2 Delivery Room Air Room Air 11/08/16 11/08/16 11/08/16 11/08/16 06:54 08:11 11:09 11:39 Resp 18 20 20 B/P 128/76 11/08/16 14:00 Temp 97.6 Pulse 95 Resp 18 B/P 105/57 Pulse Ox 94 O2 Delivery Room Air Laboratory Data CBC/BMP Laboratory Tests 11/08/16 06:24 Calcium Level 8.4 L, Red Blood Count 3.44 L, Mean Corpuscular Volume 89.0, Mean Corpuscular Hemoglobin 29.6, Mean Corpuscular Hemoglobin Concent 33.2, Red Cell Distribution Width 13.4 Labs 24H Laboratory Tests 2 11/08/16 06:24: Anion Gap 9, Blood Urea Nitrogen 16, Creatinine 0.92, Sodium Level 138, Potassium Level 4.2, Chloride Level 100, Carbon Dioxide Level 29, Calcium Level 8.4L, Ferritin 252, Folate 18.8, Glomerular Filtration Rate > 60.0, Iron Level 29L, Prealbumin 14.7L, Prothromb Time International Ratio 1.68, Prothrombin Time 19.9H, Total Iron Binding Capacity 255, Transferrin % Saturation 11.4L, Vitamin B12 Level 431 Allergies Allergies: Coded Allergies: Penicillins (Unverified Allergy, Unknown, HIVES, 11/03/16) Current Medications Current Medications Current Medications Acetaminophen (Tylenol) 650 mg Q4HP PRN PO MILD PAIN (PS 1-4); Start 11/07/16 at 15:15; Stop 12/07/16 at 15:14 Ascorbic Acid (Vitamin C) 500 mg BID PO ; Start 11/08/16 at 21:00; Stop 12/08/16 at 20:59 Ascorbic Acid (Vitamin C) 500 mg DAILY PO Last administered on 11/08/16 08:10; Start 11/08/16 at 09:00; Stop 11/08/16 at 09:08; Status DC Citalopram Hydrobromide (CeleXA) 40 mg DAILY PO Last administered on 11/08/16 08:10; Start 11/08/16 at 09:00; Stop 12/08/16 at 08:59 Docusate Sodium (Colace) 100 mg BID PO Last administered on 11/08/16 08:10; Start 11/07/16 at 21:00; Stop 12/07/16 at 20:59 Ferrous Gluconate (Fergon) 324 mg BID PO Last administered on 11/08/16 09:28; Start 11/08/16 at 09:00; Stop 12/08/16 at 08:59 Gemfibrozil (Lopid) 600 mg BID PO Last administered on 11/08/16 08:10; Start at 21:00; Stop 12/07/16 at 20:59 Irbesartan (Avapro) 150 mg DAILY PO Last administered on 11/08/16 08:11; Start 11/08/16 at 09:00; Stop 12/08/16 at 08:59 Magnesium Hydroxide (Milk Of Magnesia) 30 ml DAILYPRN PRN PO CONSTIPATION; Start 11/07/16 at 15:15; Stop 12/07/16 at 15:14 Metoclopramide HCl (Reglan) 5 mg ACHS PO Last administered on 11/08/16 11:08; Start 11/07/16 at 17:30; Stop 12/07/16 at 17:29 Omeprazole (PriLOSEC) 20 mg DAILY PO Last administered on 11/08/16 08:10; Start 11/08/16 at 09:00; Stop 12/08/16 at 08:59 Polyethylene Glycol (Miralax) 1 pkt DAILY PRN PO CONSTIPATION; Start 11/07/16 at 15:15; Stop 12/07/16 at 15:14 Senna (Senokot) 1 tab QHS PO Last administered on 11/07/16 20:48; Start at 21:00; Stop 12/07/16 at 20:59 Tramadol HCl (Ultram) 50 mg Q6HP PRN PO MODERATE PAIN (PS 5-7) Last administered on 11/08/16 05:54; Start 11/07/16 at 15:30; Stop 11/14/16 at 15:29 Tramadol HCl (Ultram) 100 mg Q6HP PRN PO SEVERE PAIN (PS 8-10) Last administered on 11/08/16 11:09; Start 11/07/16 at 15:30; Stop 11/14/16 at 15:29 Warfarin Sodium (Coumadin) 2.5 mg 1T@17 ONCE PO Last administered on 11/07/16 17:40; Start 11/07/16 at 17:00; Stop 11/07/16 at 17:01; Status DC Warfarin Sodium (Coumadin) 2.5 mg 1T@17 ONCE PO ; Start 11/08/16 at 17:00; Stop 11/08/16 at 17:01 JAGJIT HAN MD Nov 08, 2016 16:46
[2016-11-08] MEDS ORDERED: WARFARIN SOD 2.5 MG TAB PO ONE (17:00)
[2016-11-08 20:00] VITALS: BP 109/64
[2016-11-08] MEDS: SENNA 8.6 MG TAB (SENOKOT) PO SCH (20:14)
[2016-11-08] MEDS: ASCORBIC ACID 500 MG TAB PO SCH (20:15)
[2016-11-08] MEDS: HYDROCORTISONE 1% CREAM 30 GM TOP SCH (20:15)
[2016-11-09] MEDS: traMADol 50 MG TAB PO PRN ×3 (05:37→20:21)
[2016-11-09 06:00] VITALS: BP 125/56
[2016-11-09 07:13] LABS: INR 1.74
[2016-11-09] MEDS: HYDROCORTISONE 1% CREAM 30 GM TOP SCH ×2 (08:25→20:20)
[2016-11-09] MEDS: FERROUS GLUCONATE 324 MG TAB PO SCH ×2 (08:25→20:21)
[2016-11-09] MEDS: ASCORBIC ACID 500 MG TAB PO SCH ×2 (08:25→20:21)
[2016-11-09] MEDS: OMEPRAZOLE 20 MG CAP PO SCH (08:25)
[2016-11-09] MEDS: DOCUSATE SODIUM 100 MG CAP PO SCH ×2 (08:25→20:20)
[2016-11-09] MEDS: CitaloPRAM (CeleXA) 20 MG TAB PO SCH (08:25)
[2016-11-09] MEDS: GEMFIBROZIL 600 MG TAB PO SCH ×2 (08:25→20:21)
[2016-11-09] MEDS: METOCLOPRAMIDE 5 MG TAB PO SCH ×4 (08:26→20:21)
[2016-11-09] MEDS: IRBESARTAN 150 MG TAB PO SCH (08:26)
--- NOTE | 2016-11-09 11:33 | IPNPDOC ---
Rn Visiting Progress Note PROGRESS NOTE DATE OF ADMISSION: 11/07/2016 DATE OF SERVICE: 11/09/2016 IDENTIFICATION STATEMENT: 81-year-old woman with right intra-trochanteric fracture status post ORIF admitted for comprehensive integrated inpatient rehabilitation. PAST MEDICAL HISTORY: Hypertension Hypercholesteremia Diabetes mellitus, diet controlled Osteoporosis Depression Gastroesophageal reflux disease PAST SURGICAL HISTORY: Cholecystectomy Tubal ligation Adenoidectomy/tonsillectomy Appendectomy ALLERGIES: Penicillin MEDICATIONS: Coumadin daily Lopid 600 mg by mouth twice a day Omeprazole 20 mg by mouth twice a day Acetaminophen 650 mg every 4 hours when necessary for pain or fever Tramadol 100 mg every 6 hours when necessary for severe pain Tramadol 50 mg every 6 hours when necessary for moderate pain Reglan 5 mg before meals and at bedtime Vitamin C 500 mg daily Celexa 40 mg daily Avapro 150 mg daily Ferrous gluconate 324mg bid Vit C 500mg bid MiraLAX 1 packet by mouth daily prn Milk of magnesia 30 mL daily prn Senna 1 tab po qhs Colace 100mg bid Hydrocortisone cream 1% to leg bid SUBJECTIVE: No complaints. Feels well. Pain adequately controlled. Slept well. No more puritis leg. Like Glucerna, thinks its delicious. Denies any chest pain , shortness of breath, nausea vomiting, lightheadedness, constipation / diarrhea , or dysuria. VITAL SIGNS: Temperature 97.1F, pulse 92, respiratory rate 18, blood pressure 125/56, 98% RA PHYSICAL EXAMINATION: GENERAL: Well nourished, well developed, sitting up in bed, no acute distress. HEENT: Normocephalic, atraumatic, PERRL, EOMI CARDIOVASCULAR: S1, S2, regular rate. Mild diffuse swelling in the right lower limb otherwise no significant edema on the left side. No calf tenderness bilaterally. LUNGS: Clear to auscultation bilaterally, no wheezing rhonchi or rales. ABDOMEN: Soft, nontender, nondistended. Normoactive bowel sounds throughout. MUSCULOSKELETAL: MMT: 5/5 strength bilateral upper limb and left lower limb in all major muscle groups. 2/5 right hip flexors, 4/5 right knee extension and flexion, 5/5 right dorsiflexion plantar flexion and EHL. NEUROLOGICAL: Alert and oriented x 3. Answers all questions appropriately. Able to follow commands without difficulty. SKIN: Right lateral hip surgical site C/I w maria isabel. LABORATORY DATA: 11/08/16 reviewed, see below IMAGING: Hip x-ray on 11/03/2016: Comminuted, displaced intertrochanteric fracture of the right hip. Chest x-ray 11/03/2016: No acute cardiopulmonary process. FUNCTIONAL STATUS: Premorbid: Independent with ADLs and ambulation ASSESSMENT AND PLAN: 1. Right intertrochanteric fracture status post ORIF: WBAT. Continue daily physical and occupational therapy. Rehabilitation nursing for bladder, bowel, medication management and wound care. 2. DVT prophylaxis: Coumadin, dose by ANEUDY Chun of the orthopedic surgery service. Continue SCD and STEFFEN hose. 3. Anemia, acute blood loss: S/p transfusion of 2 units of packed red blood cells. ~stable. Iron deficiency. Started iron supplementation 11/08/15. 4. Diabetes mellitus: Diet controlled. Continue carb consistent diet. 5. Hypertension: Adequately controlled. Maintain ibesartan. Adjustments as needed 6. Diet/malnutrition: Prealbumin low. Carb consistent diet. Glucerna supplements. 7. Pain: Adequately controlled. Continue APA and tramadol as needed. Intermittent ice. 8. Skin rash, right leg: Continue hydrocortisone cream INTERDISCIPLINARY CARE and DISCHARGE PLANNING 1. The patient continues to require 24-hour rehabilitation nursing and physician management 2. The patient continues to benefit from current level of interdisciplinary care 3. Post discharge follow-up medical appointments: PCP, orthopedics. 4. Team conference dates: 11/10/16 5. Anticipated discharge date: TBD 6. Anticipated discharge location: Home 7. Anticipated discharge needs: HHS: PT, OT, RN, Bath Aide. Equipment needs: TBD. / Vital Signs Vital Sign - Last 24 Hours 11/08/16 11/08/16 11/08/16 11/08/16 14:00 16:52 17:22 20:00 Temp 97.6 96.7 Pulse 95 72 Resp 18 20 20 18 B/P 105/57 109/64 Pulse Ox 94 94 O2 Delivery Room Air Room Air 11/08/16 11/09/16 11/09/16 11/09/16 20:15 05:37 06:00 06:55 Temp 97.1 Pulse 92 Resp 18 18 18 18 B/P 125/56 Pulse Ox 98 O2 Delivery Room Air 11/09/16 08:26 B/P 125/56 Laboratory Data Labs 24H Laboratory Tests 2 11/09/16 06:33: Prothromb Time International Ratio 1.74, Prothrombin Time 20.4H Allergies Allergies: Coded Allergies: Penicillins (Unverified Allergy, Unknown, HIVES, 11/03/16) Current Medications Current Medications Current Medications Acetaminophen (Tylenol) 650 mg Q4HP PRN PO MILD PAIN (PS 1-4); Start 11/07/16 at 15:15; Stop 12/07/16 at 15:14 Ascorbic Acid (Vitamin C) 500 mg BID PO Last administered on 11/09/16 08:25; Start 11/08/16 at 21:00; Stop 12/08/16 at 20:59 Ascorbic Acid (Vitamin C) 500 mg DAILY PO Last administered on 11/08/16 08:10; Start 11/08/16 at 09:00; Stop 11/08/16 at 09:08; Status DC Citalopram Hydrobromide (CeleXA) 40 mg DAILY PO Last administered on 11/09/16 08:25; Start 11/08/16 at 09:00; Stop 12/08/16 at 08:59 Docusate Sodium (Colace) 100 mg BID PO Last administered on 11/09/16 08:25; Start 11/07/16 at 21:00; Stop 12/07/16 at 20:59 Ferrous Gluconate (Fergon) 324 mg BID PO Last administered on 11/09/16 08:25; Start 11/08/16 at 09:00; Stop 12/08/16 at 08:59 Gemfibrozil (Lopid) 600 mg BID PO Last administered on 11/09/16 08:25; Start at 21:00; Stop 12/07/16 at 20:59 Hydrocortisone (Hydrocortisone 1% Cream) 1 dose BID TOP Last administered on 08:25; Start 11/08/16 at 21:00; Stop 12/08/16 at 20:59 Irbesartan (Avapro) 150 mg DAILY PO Last administered on 11/09/16 08:26; Start 11/08/16 at 09:00; Stop 12/08/16 at 08:59 Magnesium Hydroxide (Milk Of Magnesia) 30 ml DAILYPRN PRN PO CONSTIPATION; Start 11/07/16 at 15:15; Stop 12/07/16 at 15:14 Metoclopramide HCl (Reglan) 5 mg ACHS PO Last administered on 11/09/16 11:22; Start 11/07/16 at 17:30; Stop 12/07/16 at 17:29 Omeprazole (PriLOSEC) 20 mg DAILY PO Last administered on 11/09/16 08:25; Start 11/08/16 at 09:00; Stop 12/08/16 at 08:59 Polyethylene Glycol (Miralax) 1 pkt DAILY PRN PO CONSTIPATION; Start 11/07/16 at 15:15; Stop 12/07/16 at 15:14 Senna (Senokot) 1 tab QHS PO Last administered on 11/08/16 20:14; Start at 21:00; Stop 12/07/16 at 20:59 Tramadol HCl (Ultram) 50 mg Q6HP PRN PO MODERATE PAIN (PS 5-7) Last administered on 11/08/16 16:52; Start 11/07/16 at 15:30; Stop 11/14/16 at 15:29 Tramadol HCl (Ultram) 100 mg Q6HP PRN PO SEVERE PAIN (PS 8-10) Last administered on 11/09/16 05:37; Start 11/07/16 at 15:30; Stop 11/14/16 at 15:29 Warfarin Sodium (Coumadin) 2.5 mg 1T@17 ONCE PO Last administered on 11/07/16 17:40; Start 11/07/16 at 17:00; Stop 11/07/16 at 17:01; Status DC Warfarin Sodium (Coumadin) 2.5 mg 1T@17 ONCE PO Last administered on 11/08/16 16:51; Start 11/08/16 at 17:00; Stop 11/08/16 at 17:01; Status DC Warfarin Sodium (Coumadin) 4 mg 1T@17 ONCE PO ; Start 11/09/16 at 17:00; Stop at 17:01 JAGJIT HAN MD Nov 09, 2016 11:33
[2016-11-09 14:00] VITALS: BP 111/55
[2016-11-09] MEDS ORDERED: WARFARIN SOD 4 MG TAB PO ONE (17:00)
[2016-11-09 20:00] VITALS: BP 127/56
[2016-11-09] MEDS: SENNA 8.6 MG TAB (SENOKOT) PO SCH (20:21)
[2016-11-10] MEDS: traMADol 50 MG TAB PO PRN ×3 (02:06→18:47)
[2016-11-10 06:14] VITALS: BP 122/62
[2016-11-10 07:12] LABS: MEAN CORPUSCULAR HEMOGLOBIN 29.7 pg (27.0-33.0); RED CELL DISTRIBUTION WIDTH 13.4 % (11.5-14.5); WHITE BLOOD COUNT 9.5 K/mm3 (4.0-10.0)
[2016-11-10 07:20] LABS: INR 1.52
[2016-11-10 07:34] LABS: ANION GAP 8 MEQ/L (8-16); BLOOD UREA NITROGEN 21 MG/DL (7-18); CALCIUM LEVEL 8.8 MG/DL (8.8-10.2); CARBON DIOXIDE LEVEL 30 MEQ/L (21-32); CHLORIDE LEVEL 98 MEQ/L (98-107); CREATININE FOR GFR 0.87 MG/DL (0.55-1.02); GLOMERULAR FILTRATION RATE > 60.0 (>32); GLUCOSE, FASTING 92 MG/DL (83-110); POTASSIUM SERUM 4.5 MEQ/L (3.5-5.1); SODIUM LEVEL 136 MEQ/L (136-145)
[2016-11-10] MEDS: CitaloPRAM (CeleXA) 20 MG TAB PO SCH (08:34)
[2016-11-10] MEDS: DOCUSATE SODIUM 100 MG CAP PO SCH ×2 (08:34→20:19)
[2016-11-10] MEDS: METOCLOPRAMIDE 5 MG TAB PO SCH ×4 (08:34→20:19)
[2016-11-10] MEDS: FERROUS GLUCONATE 324 MG TAB PO SCH ×2 (08:34→20:19)
[2016-11-10] MEDS: GEMFIBROZIL 600 MG TAB PO SCH ×2 (08:35→20:19)
[2016-11-10] MEDS: HYDROCORTISONE 1% CREAM 30 GM TOP SCH ×2 (08:35→20:20)
[2016-11-10] MEDS: IRBESARTAN 150 MG TAB PO SCH (08:35)
[2016-11-10] MEDS: OMEPRAZOLE 20 MG CAP PO SCH (08:35)
[2016-11-10] MEDS: ASCORBIC ACID 500 MG TAB PO SCH ×2 (08:35→20:19)
--- NOTE | 2016-11-10 14:51 | IPNPDOC ---
[facility] [employer] [facility] Progress Note PROGRESS NOTE DATE OF ADMISSION: 11/07/2016 DATE OF SERVICE: 11/10/2016 IDENTIFICATION STATEMENT: 81-year-old woman with right intra-trochanteric fracture status post ORIF admitted for comprehensive integrated inpatient rehabilitation. PAST MEDICAL HISTORY: Hypertension Hypercholesteremia Diabetes mellitus, diet controlled Osteoporosis Depression Gastroesophageal reflux disease PAST SURGICAL HISTORY: Cholecystectomy Tubal ligation Adenoidectomy/tonsillectomy Appendectomy ALLERGIES: Penicillin MEDICATIONS: Coumadin daily Lopid 600 mg by mouth twice a day Omeprazole 20 mg by mouth twice a day Acetaminophen 650 mg every 4 hours when necessary for pain or fever Tramadol 100 mg every 6 hours when necessary for severe pain Tramadol 50 mg every 6 hours when necessary for moderate pain Reglan 5 mg before meals and at bedtime Vitamin C 500 mg daily Celexa 40 mg daily Avapro 150 mg daily Ferrous gluconate 324mg bid Vit C 500mg bid MiraLAX 1 packet by mouth daily prn Milk of magnesia 30 mL daily prn Senna 1 tab po qhs Colace 100mg bid Hydrocortisone cream 1% to leg bid SUBJECTIVE: No complaints. Slept well. Pain adequately controlled. Less tired. Denies any chest pain, shortness of breath, nausea vomiting, lightheadedness, constipation / diarrhea, or dysuria. VITAL SIGNS: Temperature 97.0F, pulse 98, respiratory rate 18, blood pressure 122/62, 98% RA PHYSICAL EXAMINATION: GENERAL: Well nourished, well developed, sitting up in bed, no acute distress. HEENT: Normocephalic, atraumatic, PERRL, EOMI CARDIOVASCULAR: S1, S2, regular rate. Mild diffuse swelling in the right lower limb otherwise no significant edema on the left side. No calf tenderness bilaterally. LUNGS: Clear to auscultation bilaterally, no wheezing rhonchi or rales. ABDOMEN: Soft, nontender, nondistended. Normoactive bowel sounds throughout. MUSCULOSKELETAL: MMT: 5/5 strength bilateral upper limb and left lower limb in all major muscle groups. 2/5 right hip flexors, 4/5 right knee extension and flexion, 5/5 right dorsiflexion plantar flexion and EHL. NEUROLOGICAL: Alert and oriented x 3. Answers all questions appropriately. Able to follow commands without difficulty. SKIN: Right lateral hip surgical site w dressing, no significant visible drainage. LABORATORY DATA: 11/10/16 reviewed, see below IMAGING: Hip x-ray on 11/03/2016: Comminuted, displaced intertrochanteric fracture of the right hip. Chest x-ray 11/03/2016: No acute cardiopulmonary process. FUNCTIONAL STATUS: Premorbid: Independent with ADLs and ambulation ASSESSMENT AND PLAN: 1. Right intertrochanteric fracture status post ORIF: WBAT. Patient making progress. Continue daily physical and occupational therapy. Rehabilitation nursing for bladder, bowel, medication management and wound care. 2. DVT prophylaxis: Coumadin, dose by ANEUDY Chun of the orthopedic surgery service. Continue SCD and STEFFEN hose. 3. Anemia, acute blood loss: S/p transfusion of 2 units of packed red blood cells. Sl trend down. Iron deficiency. Started iron supplementation 11/08/15. Recheck Sat 4. Diabetes mellitus: Diet controlled. Continue carb consistent diet. 5. Hypertension: Adequately controlled. Maintain ibesartan. Adjustments as needed 6. Diet/malnutrition: Prealbumin low. Carb consistent diet. Glucerna supplements. 7. Pain: Adequately controlled. Continue APA and tramadol as needed. Intermittent ice. 8. Skin rash, right leg: Improved. Continue hydrocortisone cream INTERDISCIPLINARY CARE and DISCHARGE PLANNING 1. The patient continues to require 24-hour rehabilitation nursing and physician management 2. The patient continues to benefit from current level of interdisciplinary care 3. Post discharge follow-up medical appointments: PCP, orthopedics. 4. Team conference dates: 11/10/16 5. Anticipated discharge date: 11/16/16 6. Anticipated discharge location: Home 7. Anticipated discharge needs: HHS: PT, OT, RN, Bath Aide. Equipment needs: ? 2WW; has commode and tub bench / Vital Signs Vital Sign - Last 24 Hours 11/09/16 11/09/16 11/10/16 11/10/16 20:00 20:21 02:06 02:44 Temp 98.1 Pulse 98 Resp 18 18 18 18 B/P 127/56 Pulse Ox 99 O2 Delivery Room Air 11/10/16 11/10/16 11/10/16 11/10/16 06:14 06:14 06:45 08:35 Temp 97.0 Pulse 98 Resp 18 18 18 B/P 122/62 122/62 Pulse Ox 98 O2 Delivery Room Air Laboratory Data CBC/BMP Laboratory Tests 11/10/16 06:49 Calcium Level 8.8, Red Blood Count 3.32 L, Mean Corpuscular Volume 90.0, Mean Corpuscular Hemoglobin 29.7, Mean Corpuscular Hemoglobin Concent 33.0, Red Cell Distribution Width 13.4 Labs 24H Laboratory Tests 2 11/10/16 06:49: Anion Gap 8, Blood Urea Nitrogen 21H, Creatinine 0.87, Sodium Level 136, Potassium Level 4.5, Chloride Level 98, Carbon Dioxide Level 30, Calcium Level 8.8, Glomerular Filtration Rate > 60.0, Prothromb Time International Ratio 1.52 , Prothrombin Time 18.4H Allergies Allergies: Coded Allergies: Penicillins (Unverified Allergy, Unknown, HIVES, 11/03/16) Current Medications Current Medications Current Medications Acetaminophen (Tylenol) 650 mg Q4HP PRN PO MILD PAIN (PS 1-4); Start 11/07/16 at 15:15; Stop 12/07/16 at 15:14 Ascorbic Acid (Vitamin C) 500 mg BID PO Last administered on 11/10/16 08:35; Start 11/08/16 at 21:00; Stop 12/08/16 at 20:59 Ascorbic Acid (Vitamin C) 500 mg DAILY PO Last administered on 11/08/16 08:10; Start 11/08/16 at 09:00; Stop 11/08/16 at 09:08; Status DC Citalopram Hydrobromide (CeleXA) 40 mg DAILY PO Last administered on 11/10/16 08:34; Start 11/08/16 at 09:00; Stop 12/08/16 at 08:59 Docusate Sodium (Colace) 100 mg BID PO Last administered on 11/10/16 08:34; Start 11/07/16 at 21:00; Stop 12/07/16 at 20:59 Ferrous Gluconate (Fergon) 324 mg BID PO Last administered on 11/10/16 08:34; Start 11/08/16 at 09:00; Stop 12/08/16 at 08:59 Gemfibrozil (Lopid) 600 mg BID PO Last administered on 11/10/16 08:35; Start at 21:00; Stop 12/07/16 at 20:59 Hydrocortisone (Hydrocortisone 1% Cream) 1 dose BID TOP Last administered on 08:35; Start 11/08/16 at 21:00; Stop 12/08/16 at 20:59 Irbesartan (Avapro) 150 mg DAILY PO Last administered on 11/10/16 08:35; Start 11/08/16 at 09:00; Stop 12/08/16 at 08:59 Magnesium Hydroxide (Milk Of Magnesia) 30 ml DAILYPRN PRN PO CONSTIPATION; Start 11/07/16 at 15:15; Stop 12/07/16 at 15:14 Metoclopramide HCl (Reglan) 5 mg ACHS PO Last administered on 11/10/16 12:21; Start 11/07/16 at 17:30; Stop 12/07/16 at 17:29 Omeprazole (PriLOSEC) 20 mg DAILY PO Last administered on 11/10/16 08:35; Start 11/08/16 at 09:00; Stop 12/08/16 at 08:59 Polyethylene Glycol (Miralax) 1 pkt DAILY PRN PO CONSTIPATION; Start 11/07/16 at 15:15; Stop 12/07/16 at 15:14 Senna (Senokot) 1 tab QHS PO Last administered on 11/09/16 20:21; Start at 21:00; Stop 12/07/16 at 20:59 Tramadol HCl (Ultram) 50 mg Q6HP PRN PO MODERATE PAIN (PS 5-7) Last administered on 11/10/16 02:06; Start 11/07/16 at 15:30; Stop 11/14/16 at 15:29 Tramadol HCl (Ultram) 100 mg Q6HP PRN PO SEVERE PAIN (PS 8-10) Last administered on 11/10/16 06:14; Start 11/07/16 at 15:30; Stop 11/14/16 at 15:29 Warfarin Sodium (Coumadin) 2.5 mg 1T@17 ONCE PO Last administered on 11/07/16 17:40; Start 11/07/16 at 17:00; Stop 11/07/16 at 17:01; Status DC Warfarin Sodium (Coumadin) 2.5 mg 1T@17 ONCE PO Last administered on 11/08/16 16:51; Start 1/3/17 at 17:00; Stop 11/08/16 at 17:01; Status DC Warfarin Sodium (Coumadin) 4 mg 1T@17 ONCE PO Last administered on 11/09/16t 16 :57; Start 11/09/16 at 17:00; Stop 11/09/16 at 17:01; Status DC Warfarin Sodium (Coumadin) 7.5 mg 1T@17 ONCE PO ; Start 11/10/16 at 17:00; Stop 11/10/16 at 17:01 JAGJIT HAN MD Nov 10, 2016 14:51
[2016-11-10 15:00] VITALS: BP 114/67
[2016-11-10] MEDS ORDERED: WARFARIN SOD 7.5 MG TAB PO ONE (17:00)
[2016-11-10 20:00] VITALS: BP 106/59
[2016-11-10] MEDS: SENNA 8.6 MG TAB (SENOKOT) PO SCH (20:19)
[2016-11-11 05:25] VITALS: BP 116/63
[2016-11-11] MEDS: traMADol 50 MG TAB PO PRN ×3 (06:06→20:36)
[2016-11-11 07:47] LABS: INR 1.66
[2016-11-11] MEDS: HYDROCORTISONE 1% CREAM 30 GM TOP SCH ×2 (08:24→20:36)
[2016-11-11] MEDS: ASCORBIC ACID 500 MG TAB PO SCH ×2 (08:24→20:35)
[2016-11-11] MEDS: OMEPRAZOLE 20 MG CAP PO SCH (08:25)
[2016-11-11] MEDS: FERROUS GLUCONATE 324 MG TAB PO SCH ×2 (08:26→20:35)
[2016-11-11] MEDS: CitaloPRAM (CeleXA) 20 MG TAB PO SCH (08:26)
[2016-11-11] MEDS: DOCUSATE SODIUM 100 MG CAP PO SCH ×2 (08:26→20:35)
[2016-11-11] MEDS: GEMFIBROZIL 600 MG TAB PO SCH ×2 (08:26→20:35)
[2016-11-11] MEDS: METOCLOPRAMIDE 5 MG TAB PO SCH ×4 (08:26→20:35)
[2016-11-11] MEDS: IRBESARTAN 150 MG TAB PO SCH (08:26)
[2016-11-11] MEDS: DICLOFENAC EPOLAMINE 1.3 % PATCH TOP SCH ×2 (10:34→20:37)
--- NOTE | 2016-11-11 11:36 | IPNPDOC ---
[facility] Progress Note PROGRESS NOTE DATE OF ADMISSION: 11/07/2016 DATE OF SERVICE: 11/11/2016 IDENTIFICATION STATEMENT: 81-year-old woman with right intra-trochanteric fracture status post ORIF admitted for comprehensive integrated inpatient rehabilitation. PAST MEDICAL HISTORY: Hypertension Hypercholesteremia Diabetes mellitus, diet controlled Osteoporosis Depression Gastroesophageal reflux disease PAST SURGICAL HISTORY: Cholecystectomy Tubal ligation Adenoidectomy/tonsillectomy Appendectomy ALLERGIES: Penicillin MEDICATIONS: Coumadin daily Lopid 600 mg by mouth twice a day Omeprazole 20 mg by mouth twice a day Acetaminophen 650 mg every 4 hours when necessary for pain or fever Tramadol 100 mg every 6 hours when necessary for severe pain Tramadol 50 mg every 6 hours when necessary for moderate pain Reglan 5 mg before meals and at bedtime Vitamin C 500 mg daily Celexa 40 mg daily Avapro 150 mg daily Ferrous gluconate 324mg bid Vit C 500mg bid MiraLAX 1 packet by mouth daily prn Milk of magnesia 30 mL daily prn Senna 1 tab po qhs Colace 100mg bid Hydrocortisone cream 1% to leg bid SUBJECTIVE: Patient complains of right lateral leg and foot pain, radiates up, sharp. Didnt sleep well 2nd pain. Hip pain adequately controlled. Denies any chest pain, shortness of breath, nausea vomiting, lightheadedness, constipation / diarrhea, or dysuria. VITAL SIGNS: Temperature 98.0F, pulse 98, respiratory rate 18, blood pressure 116/63, 92% RA PHYSICAL EXAMINATION: GENERAL: Well nourished, well developed, sitting up in bed, no acute distress. HEENT: Normocephalic, atraumatic, PERRL, EOMI CARDIOVASCULAR: S1, S2, regular rate. Mild diffuse swelling in the right lower limb otherwise no significant edema on the left side. No calf tenderness bilaterally. LUNGS: Clear to auscultation bilaterally, no wheezing rhonchi or rales. ABDOMEN: Soft, nontender, nondistended. Normoactive bowel sounds throughout. MUSCULOSKELETAL: + seated SLR on right. MMT: 5/5 strength bilateral upper limb and left lower limb in all major muscle groups. 2/5 right hip flexors, 4/5 right knee extension and flexion, 5/5 right dorsiflexion plantar flexion and EHL. NEUROLOGICAL: Alert and oriented x 3. Answers all questions appropriately. Able to follow commands without difficulty. SKIN: Right lateral hip surgical site w dressing, no significant visible drainage. LABORATORY DATA: 11/10/16 reviewed, see below IMAGING: Hip x-ray on 11/03/2016: Comminuted, displaced intertrochanteric fracture of the right hip. Chest x-ray 11/03/2016: No acute cardiopulmonary process. FUNCTIONAL STATUS: Premorbid: Independent with ADLs and ambulation ASSESSMENT AND PLAN: 1. Right intertrochanteric fracture status post ORIF: WBAT. Patient making progress. Continue daily physical and occupational therapy. Rehabilitation nursing for bladder, bowel, medication management and wound care. 2. Right leg and lateral foot pain: possibly L5 radiculitis. Flector patch to low back and intermittent ice to low back. Continue tramadol prn. 3. DVT prophylaxis: Coumadin, dose by ANEUDY Chun of the orthopedic surgery service. Continue SCD and STEFFEN hose. 4. Anemia, acute blood loss: S/p transfusion of 2 units of packed red blood cells. Sl trend down per yesterdays labs. Iron deficiency. Started iron supplementation 11/08/15. Recheck Sat 5. Diabetes mellitus: Diet controlled. Continue carb consistent diet. 6. Hypertension: Adequately controlled. Maintain ibesartan. Adjustments as needed 7. Diet/malnutrition: Prealbumin low. Carb consistent diet. Glucerna supplements. 8. Pain: Adequately controlled. Continue APA and tramadol as needed. Intermittent ice. 9. Skin rash, right leg: Improved. Continue hydrocortisone cream INTERDISCIPLINARY CARE and DISCHARGE PLANNING 1. The patient continues to require 24-hour rehabilitation nursing and physician management 2. The patient continues to benefit from current level of interdisciplinary care 3. Post discharge follow-up medical appointments: PCP, orthopedics. 4. Team conference dates: 11/10/16 5. Anticipated discharge date: 11/16/16 6. Anticipated discharge location: Home 7. Anticipated discharge needs: HHS: PT, OT, RN, Bath Aide. Equipment needs: ? 2WW; has commode and tub bench / Vital Signs Vital Sign - Last 24 Hours 11/10/16 11/10/16 11/10/16 11/10/16 15:00 18:47 20:00 20:18 Temp 98.2 98.6 Pulse 106 91 Resp 18 18 18 18 B/P 114/67 106/59 Pulse Ox 94 96 O2 Delivery Room Air Room Air 11/11/16 11/11/16 11/11/16 11/11/16 05:25 06:06 06:40 08:26 Temp 98.9 Pulse 98 Resp 18 18 18 B/P 116/63 116/63 Pulse Ox 92 O2 Delivery Room Air Laboratory Data Labs 24H Laboratory Tests 2 11/11/16 06:33: Prothromb Time International Ratio 1.66, Prothrombin Time 19.7H Allergies Allergies: Coded Allergies: Penicillins (Unverified Allergy, Unknown, HIVES, 11/03/16) Current Medications Current Medications Current Medications Acetaminophen (Tylenol) 650 mg Q4HP PRN PO MILD PAIN (PS 1-4); Start 11/07/16 at 15:15; Stop 12/07/16 at 15:14 Ascorbic Acid (Vitamin C) 500 mg BID PO Last administered on 11/11/16 08:24; Start 11/08/16 at 21:00; Stop 12/08/16 at 20:59 Ascorbic Acid (Vitamin C) 500 mg DAILY PO Last administered on 11/08/16 08:10; Start 11/08/16 at 09:00; Stop 11/08/16 at 09:08; Status DC Citalopram Hydrobromide (CeleXA) 40 mg DAILY PO Last administered on 11/11/16 08:26; Start 11/08/16 at 09:00; Stop 12/08/16 at 08:59 Diclofenac Epolamine (Flector 1.3%) 1 patch Q12H TOP Last administered on 10:34; Start 11/11/16 at 09:30; Stop 12/11/16 at 09:29 Docusate Sodium (Colace) 100 mg BID PO Last administered on 11/11/16 08:26; Start 11/07/16 at 21:00; Stop 12/07/16 at 20:59 Ferrous Gluconate (Fergon) 324 mg BID PO Last administered on 11/11/16 08:26; Start 11/08/16 at 09:00; Stop 12/08/16 at 08:59 Gemfibrozil (Lopid) 600 mg BID PO Last administered on 11/11/16 08:26; Start at 21:00; Stop 12/07/16 at 20:59 Hydrocortisone (Hydrocortisone 1% Cream) 1 dose BID TOP Last administered on 08:24; Start 11/08/16 at 21:00; Stop 12/08/16 at 20:59 Irbesartan (Avapro) 150 mg DAILY PO Last administered on 11/11/16 08:26; Start 11/08/16 at 09:00; Stop 12/08/16 at 08:59 Magnesium Hydroxide (Milk Of Magnesia) 30 ml DAILYPRN PRN PO CONSTIPATION Last administered on 11/11/16 08:25; Start 11/07/16 at 15:15; Stop 12/07/16 at 15:14 Metoclopramide HCl (Reglan) 5 mg ACHS PO Last administered on 11/11/16 11:10; Start 11/07/16 at 17:30; Stop 12/07/16 at 17:29 Omeprazole (PriLOSEC) 20 mg DAILY PO Last administered on 11/11/16 08:25; Start 11/08/16 at 09:00; Stop 12/08/16 at 08:59 Polyethylene Glycol (Miralax) 1 pkt DAILY PRN PO CONSTIPATION Last administered on 11/11/16 08:25; Start 11/07/16 at 15:15; Stop 12/07/16 at 15:14 Senna (Senokot) 1 tab QHS PO Last administered on 11/10/16 20:19; Start at 21:00; Stop 12/07/16 at 20:59 Tramadol HCl (Ultram) 50 mg Q6HP PRN PO MODERATE PAIN (PS 5-7) Last administered on 11/11/16 06:06; Start 11/07/16 at 15:30; Stop 11/14/16 at 15:29 Tramadol HCl (Ultram) 100 mg Q6HP PRN PO SEVERE PAIN (PS 8-10) Last administered on 11/10/16 18:47; Start 11/07/16 at 15:30; Stop 11/14/16 at 15:29 Warfarin Sodium (Coumadin) 2.5 mg 1T@17 ONCE PO Last administered on 11/07/16 17:40; Start 11/07/16 at 17:00; Stop 11/07/16 at 17:01; Status DC Warfarin Sodium (Coumadin) 2.5 mg 1T@17 ONCE PO Last administered on 11/08/16 16:51; Start 11/08/16 at 17:00; Stop 11/08/16 at 17:01; Status DC Warfarin Sodium (Coumadin) 4 mg 1T@17 ONCE PO Last administered on 11/09/16 16 :57; Start 11/09/16 at 17:00; Stop 11/09/16 at 17:01; Status DC Warfarin Sodium (Coumadin) 5 mg 1T@17 ONCE PO ; Start 11/11/16 at 17:00; Stop at 17:01 Warfarin Sodium (Coumadin) 7.5 mg 1T@17 ONCE PO Last administered on 11/10/16 17:19; Start 11/10/16 at 17:00; Stop 11/10/16 at 17:01; Status DC JAGJIT HAN MD Nov 11, 2016 11:36
[2016-11-11 14:00] VITALS: BP 92/61
[2016-11-11] MEDS ORDERED: WARFARIN SOD 5 MG TAB PO ONE (17:00)
[2016-11-11 20:00] VITALS: BP 132/59
[2016-11-11] MEDS: SENNA 8.6 MG TAB (SENOKOT) PO SCH (20:35)
[2016-11-12] MEDS: traMADol 50 MG TAB PO PRN ×3 (05:44→20:16)
[2016-11-12 06:00] VITALS: BP 131/61
[2016-11-12 06:49] LABS: MEAN CORPUSCULAR HEMOGLOBIN 30.7 pg (27.0-33.0); MEAN CORPUSCULAR HGB CONC 33.8 g/dl (32.0-36.5); MEAN CORPUSCULAR VOLUME 90.7 fl (80.0-96.0); RED CELL DISTRIBUTION WIDTH 13.7 % (11.5-14.5); WHITE BLOOD COUNT 9.7 K/mm3 (4.0-10.0)
[2016-11-12 06:55] LABS: INR 1.88
[2016-11-12 07:08] LABS: ANION GAP 9 MEQ/L (8-16); BLOOD UREA NITROGEN 23 MG/DL (7-18); CALCIUM LEVEL 9.1 MG/DL (8.8-10.2); CARBON DIOXIDE LEVEL 29 MEQ/L (21-32); CHLORIDE LEVEL 97 MEQ/L (98-107); GLOMERULAR FILTRATION RATE > 60.0 (>32); GLUCOSE, FASTING 87 MG/DL (83-110); POTASSIUM SERUM 4.6 MEQ/L (3.5-5.1); SODIUM LEVEL 135 MEQ/L (136-145)
[2016-11-12] MEDS: METOCLOPRAMIDE 5 MG TAB PO SCH ×4 (08:21→20:15)
[2016-11-12] MEDS: DOCUSATE SODIUM 100 MG CAP PO SCH ×2 (08:57→20:15)
[2016-11-12] MEDS: GEMFIBROZIL 600 MG TAB PO SCH ×2 (08:57→20:15)
[2016-11-12] MEDS: CitaloPRAM (CeleXA) 20 MG TAB PO SCH (08:57)
[2016-11-12] MEDS: DICLOFENAC EPOLAMINE 1.3 % PATCH TOP SCH ×2 (08:57→20:17)
[2016-11-12] MEDS: FERROUS GLUCONATE 324 MG TAB PO SCH ×2 (08:58→20:15)
[2016-11-12] MEDS: ASCORBIC ACID 500 MG TAB PO SCH ×2 (08:58→20:15)
[2016-11-12] MEDS: OMEPRAZOLE 20 MG CAP PO SCH (08:58)
[2016-11-12] MEDS: IRBESARTAN 150 MG TAB PO SCH (08:58)
[2016-11-12] MEDS: HYDROCORTISONE 1% CREAM 30 GM TOP SCH ×2 (08:59→20:17)
[2016-11-12 13:37] VITALS: BP 108/51
[2016-11-12] MEDS ORDERED: WARFARIN SOD 5 MG TAB PO ONE (17:00)
[2016-11-12] MEDS: SENNA 8.6 MG TAB (SENOKOT) PO SCH (20:15)
[2016-11-12 21:00] VITALS: BP 119/61
[2016-11-13 06:00] VITALS: BP 138/65
[2016-11-13 07:20] LABS: INR 1.94
[2016-11-13] MEDS: METOCLOPRAMIDE 5 MG TAB PO SCH ×4 (07:41→20:03)
[2016-11-13] MEDS: FERROUS GLUCONATE 324 MG TAB PO SCH ×2 (08:15→20:02)
[2016-11-13] MEDS: GEMFIBROZIL 600 MG TAB PO SCH ×2 (08:15→20:03)
[2016-11-13] MEDS: traMADol 50 MG TAB PO PRN (08:15)
[2016-11-13] MEDS: ASCORBIC ACID 500 MG TAB PO SCH ×2 (08:15→20:03)
[2016-11-13] MEDS: DOCUSATE SODIUM 100 MG CAP PO SCH ×2 (08:15→20:02)
[2016-11-13] MEDS: IRBESARTAN 150 MG TAB PO SCH (08:16)
[2016-11-13] MEDS: CitaloPRAM (CeleXA) 20 MG TAB PO SCH (08:16)
[2016-11-13] MEDS: HYDROCORTISONE 1% CREAM 30 GM TOP SCH ×2 (08:17→20:04)
[2016-11-13] MEDS: DICLOFENAC EPOLAMINE 1.3 % PATCH TOP SCH ×2 (08:17→21:26)
[2016-11-13] MEDS: OMEPRAZOLE 20 MG CAP PO SCH (08:18)
[2016-11-13] MEDS: ACETAMINOPHEN TAB 650MG DOSE (2X325MG) PO PRN ×3 (12:02→21:23)
[2016-11-13 14:00] VITALS: BP 118/72
[2016-11-13] MEDS ORDERED: WARFARIN SOD 2.5 MG TAB PO ONE (17:00)
[2016-11-13 20:00] VITALS: BP 118/56
[2016-11-13] MEDS: SENNA 8.6 MG TAB (SENOKOT) PO SCH (20:03)
[2016-11-14 06:00] VITALS: BP 113/67
[2016-11-14] MEDS: ACETAMINOPHEN TAB 650MG DOSE (2X325MG) PO PRN ×3 (06:49→20:23)
[2016-11-14 08:01] LABS: INR 1.76
[2016-11-14] MEDS: DICLOFENAC EPOLAMINE 1.3 % PATCH TOP SCH ×2 (08:15→20:26)
[2016-11-14] MEDS: HYDROCORTISONE 1% CREAM 30 GM TOP SCH ×2 (08:15→20:24)
[2016-11-14] MEDS: METOCLOPRAMIDE 5 MG TAB PO SCH ×4 (08:16→20:22)
[2016-11-14] MEDS: CitaloPRAM (CeleXA) 20 MG TAB PO SCH (08:16)
[2016-11-14] MEDS: FERROUS GLUCONATE 324 MG TAB PO SCH ×2 (08:16→20:22)
[2016-11-14] MEDS: OMEPRAZOLE 20 MG CAP PO SCH (08:16)
[2016-11-14] MEDS: GEMFIBROZIL 600 MG TAB PO SCH ×2 (08:16→20:22)
[2016-11-14] MEDS: ASCORBIC ACID 500 MG TAB PO SCH ×2 (08:16→20:23)
[2016-11-14] MEDS: DOCUSATE SODIUM 100 MG CAP PO SCH ×2 (08:16→20:22)
[2016-11-14] MEDS: IRBESARTAN 150 MG TAB PO SCH (08:16)
--- NOTE | 2016-11-14 13:04 | IPNPDOC ---
Application Support Administrator Progress Note PROGRESS NOTE DATE OF ADMISSION: 11/07/2016 DATE OF SERVICE: 11/14/2016 IDENTIFICATION STATEMENT: 81-year-old woman with right intra-trochanteric fracture status post ORIF admitted for comprehensive integrated inpatient rehabilitation. PAST MEDICAL HISTORY: Hypertension Hypercholesteremia Diabetes mellitus, diet controlled Osteoporosis Depression Gastroesophageal reflux disease PAST SURGICAL HISTORY: Cholecystectomy Tubal ligation Adenoidectomy/tonsillectomy Appendectomy ALLERGIES: Penicillin MEDICATIONS: Coumadin daily Lopid 600 mg by mouth twice a day Omeprazole 20 mg by mouth twice a day Acetaminophen 650 mg every 4 hours when necessary for pain or fever Tramadol 50 mg every 6 hours when necessary for moderate-severe pain Reglan 5 mg before meals and at bedtime Vitamin C 500 mg daily Celexa 40 mg daily Avapro 150 mg daily Ferrous gluconate 324mg bid Vit C 500mg bid MiraLAX 1 packet by mouth daily prn Milk of magnesia 30 mL daily prn Senna 1 tab po qhs Colace 100mg bid Hydrocortisone cream 1% to leg bid Flector Patch to low back q12h SUBJECTIVE: Patient w/o complaints. Right lateral leg and foot pain gone, thinks patch helpful. Hip pain adequately controlled with Tylenol. States she doesnt like the way tramadol makes her feel. Slept well. Denies any chest pain , shortness of breath, nausea vomiting, lightheadedness, constipation / diarrhea , or dysuria. VITAL SIGNS: Temperature 97.9F, pulse 90, respiratory rate 18, blood pressure 113/67, 96% RA PHYSICAL EXAMINATION: GENERAL: Well nourished, well developed, sitting up in bed, no acute distress. HEENT: Normocephalic, atraumatic, PERRL, EOMI CARDIOVASCULAR: S1, S2, regular rate. No significant edema or calf tenderness bilaterally. LUNGS: Clear to auscultation bilaterally, no wheezing rhonchi or rales. ABDOMEN: Soft, nontender, nondistended. Normoactive bowel sounds throughout. MUSCULOSKELETAL: MMT: 5/5 strength bilateral upper limb and left lower limb in all major muscle groups. 2+/5 right hip flexors, 4/5 right knee extension and flexion, 5/5 right dorsiflexion plantar flexion and EHL. NEUROLOGICAL: Alert and oriented x 3. Answers all questions appropriately. Able to follow commands without difficulty. SKIN: Right lateral hip surgical site w dressing, no significant visible drainage. LABORATORY DATA: 11/12/16 reviewed, Hgb 9.7, BUN 23, Na 135 IMAGING: Hip x-ray on 11/03/2016: Comminuted, displaced intertrochanteric fracture of the right hip. Chest x-ray 11/03/2016: No acute cardiopulmonary process. FUNCTIONAL STATUS: Premorbid: Independent with ADLs and ambulation ASSESSMENT AND PLAN: 1. Right intertrochanteric fracture status post ORIF: WBAT. Patient making good progress. Continue daily physical and occupational therapy. Rehabilitation nursing for bladder, bowel, medication management and wound care. 2. Right leg and lateral foot pain: Possibly L5 radiculitis. Flector patch to low back and intermittent ice seem to be effective. Continue current regimen. 3. DVT prophylaxis: Coumadin, dose by ANEUDY Chun of the orthopedic surgery service. Continue SCD and STEFFEN tejeda. 4. Anemia, acute blood loss: S/p transfusion of 2 units of packed red blood cells. Hgb ~stable. Continue iron supplementation (started 11/08/15). Recheck tomorrow 5. Diabetes mellitus: Diet controlled. Continue carb consistent diet. 6. Hypertension: Adequately controlled. Maintain ibesartan. 7. Diet/malnutrition: Prealbumin low. Carb consistent diet. Glucerna supplements. 8. Pain: Adequately controlled. Continue APAP, In review of the patients medical record, she received 100 mg of tramadol yesterday and 300mg the day before. Her last dose of 50 mg was on 11/11/2016. The cognitive side effects may have been residual from the high dose she received on Monday in conjunction with her SSRI. Will decrease available tramadol dose to 50 mg q6h as needed for severe pain due to patients reports of cognitive side effects. Continue APAP as needed. Intermittent ice. 9. Skin rash, right leg: Improved-almost resolved. Continue hydrocortisone cream INTERDISCIPLINARY CARE and DISCHARGE PLANNING 1. The patient continues to require 24-hour rehabilitation nursing and physician management 2. The patient continues to benefit from current level of interdisciplinary care 3. Post discharge follow-up medical appointments: PCP, orthopedics. 4. Team conference dates: 11/10/16, 11/15/16 pending 5. Anticipated discharge date: 11/16/16 6. Anticipated discharge location: Home 7. Anticipated discharge needs: HHS: PT, OT, RN, Bath Aide. Equipment needs: ? 2WW; has commode and tub bench / Vital Signs Vital Sign - Last 24 Hours 11/13/16 11/13/16 11/14/16 11/14/16 14:00 20:00 06:00 08:16 Temp 97.6 98.2 97.9 Pulse 89 82 90 Resp 18 18 18 B/P 118/72 118/56 113/67 113/67 Pulse Ox 95 96 96 O2 Delivery Room Air Room Air Room Air Laboratory Data Labs 24H Laboratory Tests 2 11/14/16 07:23: Prothromb Time International Ratio 1.76, Prothrombin Time 20.6H Allergies Allergies: Coded Allergies: Penicillins (Unverified Allergy, Unknown, HIVES, 11/03/16) Current Medications Current Medications Current Medications Acetaminophen (Tylenol) 650 mg Q4HP PRN PO MILD/MODERATE PAIN (PS 1-6) Last administered on 11/14/16 06:49; Start 11/07/16 at 15:15; Stop 12/07/16 at 15:14 Ascorbic Acid (Vitamin C) 500 mg BID PO Last administered on 11/14/16 08:16; Start 11/08/16 at 21:00; Stop 12/08/16 at 20:59 Ascorbic Acid (Vitamin C) 500 mg DAILY PO Last administered on 11/08/16 08:10; Start 11/08/16 at 09:00; Stop 11/08/16 at 09:08; Status DC Citalopram Hydrobromide (CeleXA) 40 mg DAILY PO Last administered on 11/14/16 08:16; Start 11/08/16 at 09:00; Stop 12/08/16 at 08:59 Diclofenac Epolamine (Flector 1.3%) 1 patch Q12H TOP Last administered on 08:15; Start 11/11/16 at 09:30; Stop 12/11/16 at 09:29 Docusate Sodium (Colace) 100 mg BID PO Last administered on 11/14/16 08:16; Start 11/07/16 at 21:00; Stop 12/07/16 at 20:59 Ferrous Gluconate (Fergon) 324 mg BID PO Last administered on 11/14/16 08:16; Start 11/08/16 at 09:00; Stop 12/08/16 at 08:59 Gemfibrozil (Lopid) 600 mg BID PO Last administered on 11/14/16 08:16; Start at 21:00; Stop 12/07/16 at 20:59 Hydrocortisone (Hydrocortisone 1% Cream) 1 dose BID TOP Last administered on 08:15; Start 11/08/16 at 21:00; Stop 12/08/16 at 20:59 Irbesartan (Avapro) 150 mg DAILY PO Last administered on 11/14/16 08:16; Start 11/08/16 at 09:00; Stop 12/08/16 at 08:59 Magnesium Hydroxide (Milk Of Magnesia) 30 ml DAILYPRN PRN PO CONSTIPATION Last administered on 11/11/16 08:25; Start 11/07/16 at 15:15; Stop 12/07/16 at 15:14 Metoclopramide HCl (Reglan) 5 mg ACHS PO Last administered on 11/14/16 11:18; Start 11/07/16 at 17:30; Stop 12/07/16 at 17:29 Omeprazole (PriLOSEC) 20 mg DAILY PO Last administered on 11/14/16 08:16; Start 11/08/16 at 09:00; Stop 12/08/16 at 08:59 Polyethylene Glycol (Miralax) 1 pkt DAILY PRN PO CONSTIPATION Last administered on 11/11/16 08:25; Start 11/07/16 at 15:15; Stop 12/07/16 at 15:14 Senna (Senokot) 1 tab QHS PO Last administered on 11/12/16 20:15; Start at 21:00; Stop 12/07/16 at 20:59 Tramadol HCl (Ultram) 50 mg Q6HP PRN PO SEVERE PAIN (PS 7-10) Last administered on 11/11/16 14:25; Start 11/07/16 at 15:30; Stop 11/20/16 at 15:29 Tramadol HCl (Ultram) 100 mg Q6HP PRN PO SEVERE PAIN (PS 8-10) Last administered on 11/13/16 08:15; Start 11/07/16 at 15:30; Stop 11/14/16 at 09:34; Status DC Warfarin Sodium (Coumadin) 2.5 mg 1T@17 ONCE PO Last administered on 11/07/16 17:40; Start 11/07/16 at 17:00; Stop 11/07/16 at 17:01; Status DC Warfarin Sodium (Coumadin) 2.5 mg 1T@17 ONCE PO Last administered on 11/08/16 16:51; Start 11/08/16 at 17:00; Stop 11/08/16 at 17:01; Status DC Warfarin Sodium (Coumadin) 2.5 mg 1T@17 ONCE PO Last administered on 11/13/16 17:10; Start 11/13/16 at 17:00; Stop 11/13/16 at 17:01; Status DC Warfarin Sodium (Coumadin) 4 mg 1T@17 ONCE PO Last administered on 11/09/16 16 :57; Start 11/09/16 at 17:00; Stop 11/09/16 at 17:01; Status DC Warfarin Sodium (Coumadin) 5 mg 1T@17 ONCE PO Last administered on 11/11/16 17 :05; Start 11/11/16 at 17:00; Stop 11/11/16 at 17:01; Status DC Warfarin Sodium (Coumadin) 5 mg 1T@17 ONCE PO Last administered on 11/12/16 16 :59; Start 11/12/16 at 17:00; Stop 11/12/16 at 17:01; Status DC Warfarin Sodium (Coumadin) 5 mg 1T@17 ONCE PO ; Start 11/14/16 at 17:00; Stop at 17:01 Warfarin Sodium (Coumadin) 7.5 mg 1T@17 ONCE PO Last administered on 11/10/16 17:19; Start 11/10/16 at 17:00; Stop 11/10/16 at 17:01; Status DC JAGJIT HAN MD Nov 14, 2016 13:04 JAGJIT HAN MD Nov 14, 2016 13:04
[2016-11-14 14:00] VITALS: BP 109/58
[2016-11-14] MEDS ORDERED: WARFARIN SOD 5 MG TAB PO ONE (17:00)
[2016-11-14 20:00] VITALS: BP 108/56
[2016-11-14] MEDS: SENNA 8.6 MG TAB (SENOKOT) PO SCH (20:22)
[2016-11-15 05:14] VITALS: BP 118/56
[2016-11-15] MEDS: ACETAMINOPHEN TAB 650MG DOSE (2X325MG) PO PRN ×2 (06:30→21:20)
[2016-11-15 07:51] LABS: MEAN CORPUSCULAR HEMOGLOBIN 30.3 pg (27.0-33.0); MEAN CORPUSCULAR HGB CONC 33.3 g/dl (32.0-36.5); MEAN CORPUSCULAR VOLUME 91.1 fl (80.0-96.0); RED CELL DISTRIBUTION WIDTH 13.5 % (11.5-14.5); WHITE BLOOD COUNT 7.2 K/mm3 (4.0-10.0)
[2016-11-15 07:54] LABS: ANION GAP 8 MEQ/L (8-16); BLOOD UREA NITROGEN 16 MG/DL (7-18); CALCIUM LEVEL 9.2 MG/DL (8.8-10.2); CARBON DIOXIDE LEVEL 27 MEQ/L (21-32); CHLORIDE LEVEL 106 MEQ/L (98-107); CREATININE FOR GFR 0.83 MG/DL (0.55-1.02); GLOMERULAR FILTRATION RATE > 60.0 (>32); GLUCOSE, FASTING 91 MG/DL (83-110); POTASSIUM SERUM 4.4 MEQ/L (3.5-5.1); SODIUM LEVEL 141 MEQ/L (136-145)
[2016-11-15 08:04] LABS: INR 1.73
[2016-11-15] MEDS: DOCUSATE SODIUM 100 MG CAP PO SCH (08:14)
[2016-11-15] MEDS: DICLOFENAC EPOLAMINE 1.3 % PATCH TOP SCH ×2 (08:14→21:18)
[2016-11-15] MEDS: HYDROCORTISONE 1% CREAM 30 GM TOP SCH ×2 (08:14→21:00)
[2016-11-15] MEDS: GEMFIBROZIL 600 MG TAB PO SCH ×2 (08:14→21:19)
[2016-11-15] MEDS: IRBESARTAN 150 MG TAB PO SCH (08:15)
[2016-11-15] MEDS: CitaloPRAM (CeleXA) 20 MG TAB PO SCH (08:15)
[2016-11-15] MEDS: ASCORBIC ACID 500 MG TAB PO SCH ×2 (08:15→21:19)
[2016-11-15] MEDS: FERROUS GLUCONATE 324 MG TAB PO SCH ×2 (08:15→21:19)
[2016-11-15] MEDS: METOCLOPRAMIDE 5 MG TAB PO SCH ×3 (08:15→16:36)
[2016-11-15] MEDS: OMEPRAZOLE 20 MG CAP PO SCH (08:15)
--- NOTE | 2016-11-15 12:50 | IPNPDOC ---
Senior User Experience Architect Progress Note PROGRESS NOTE DATE OF ADMISSION: 11/07/2016 DATE OF SERVICE: 11/15/2016 IDENTIFICATION STATEMENT: 81-year-old woman with right intra-trochanteric fracture status post ORIF admitted for comprehensive integrated inpatient rehabilitation. PAST MEDICAL HISTORY: Hypertension Hypercholesteremia Diabetes mellitus, diet controlled Osteoporosis Depression Gastroesophageal reflux disease PAST SURGICAL HISTORY: Cholecystectomy Tubal ligation Adenoidectomy/tonsillectomy Appendectomy ALLERGIES: Penicillin MEDICATIONS: Coumadin daily Lopid 600 mg by mouth twice a day Omeprazole 20 mg by mouth twice a day Acetaminophen 650 mg every 4 hours when necessary for pain or fever Tramadol 50 mg every 6 hours when necessary for moderate pain Reglan 5 mg before meals and at bedtime Vitamin C 500 mg daily Celexa 40 mg daily Avapro 150 mg daily Ferrous gluconate 324mg bid Vit C 500mg bid MiraLAX 1 packet by mouth daily prn Milk of magnesia 30 mL daily prn Senna 1 tab po qhs Colace 100mg bid Hydrocortisone cream 1% to leg bid Flector Patch to low back q12h SUBJECTIVE: Patient w/o complaints. Had some difficulty sleeping 2nd to difficulty getting comfortable. Also had episode of vomiting this am and last night. No nausea now. Denies any chest pain, shortness of breath, lightheadedness, diaphoresis, constipation/diarrhea or dysuria. VITAL SIGNS: Temperature 97.9F, pulse 79, respiratory rate 18, blood pressure 118/56, 97% RA PHYSICAL EXAMINATION: GENERAL: Well nourished, well developed, sitting up in bed, no acute distress. HEENT: Normocephalic, atraumatic, PERRL, EOMI CARDIOVASCULAR: S1, S2, regular rate. No significant edema or calf tenderness bilaterally. LUNGS: Clear to auscultation bilaterally. No wheezing rhonchi or rales. ABDOMEN: Soft, nontender, nondistended. Normoactive bowel sounds throughout. MUSCULOSKELETAL: MMT: 5/5 strength bilateral upper limb and left lower limb in all major muscle groups. 2+/5 right hip flexors, 4/5 right knee extension and flexion, 5/5 right dorsiflexion plantar flexion and EHL. NEUROLOGICAL: Alert and oriented x 3. Answers all questions appropriately. Able to follow commands without difficulty. SKIN: Right lateral hip surgical site w dressing, no significant visible drainage. LABORATORY DATA: 11/15/16: reviewed, see below 1/7/17 reviewed, Hgb 9.7, BUN 23, Na 135 IMAGING: Hip x-ray on 11/03/2016: Comminuted, displaced intertrochanteric fracture of the right hip. Chest x-ray 11/03/2016: No acute cardiopulmonary process. FUNCTIONAL STATUS, Premorbid: Independent with ADLs and ambulation ASSESSMENT AND PLAN: 1. Right intertrochanteric fracture status post ORIF: WBAT. Patient making progress. Continue daily physical and occupational therapy. Rehabilitation nursing for bladder, bowel, medication management and wound care. 2. Right leg and lateral foot pain: Possibly L5 radiculitis. Flector patch to low back and intermittent ice seem to be effective. Continue current regimen. 3. DVT prophylaxis: Coumadin, dose by ANEUDY Chun of the orthopedic surgery service. Continue SCD and STEFFEN hose. 4. Anemia, acute blood loss: S/p transfusion of 2 units of packed red blood cells. Hgb~stable. Continue iron supplementation (started 11/08/15). Recheck tomorrow 5. Diabetes mellitus: Diet controlled. Continue carb consistent diet. 6. Hypertension: Adequately controlled. Maintain ibesartan. 7. Diet/malnutrition: Prealbumin low. Carb consistent diet. Glucerna supplements. 8. Pain: Adequately controlled. Continue APAP as needed. Hasnt required any tramadol since changing parameters. Intermittent ice. 9. Skin rash, right leg: Almost resolved. Continue hydrocortisone cream 10. Vomiting: Possible related to iron supplementation given reported times of episodes. If recurs, will consider decreasing or d/cing iron. INTERDISCIPLINARY CARE and DISCHARGE PLANNING 1. The patient continues to require 24-hour rehabilitation nursing and physician management 2. The patient continues to benefit from current level of interdisciplinary care 3. Post discharge follow-up medical appointments: PCP, orthopedics. 4. Team conference dates: 11/10/16, 11/15/16 pending 5. Anticipated discharge date: 11/16/16 6. Anticipated discharge location: Home 7. Anticipated discharge needs: HHS: PT, OT, RN, Bath Aide. Equipment needs: ? 2WW; has commode and tub bench / Vital Signs Vital Sign - Last 24 Hours 11/14/16 11/14/16 11/15/16 11/15/16 14:00 20:00 05:14 08:15 Temp 98.7 98.7 97.9 Pulse 89 86 79 Resp 18 18 18 B/P 109/58 108/56 118/56 118/56 Pulse Ox 95 96 97 O2 Delivery Room Air Room Air Room Air Laboratory Data CBC/BMP Laboratory Tests 11/15/16 07:20 Calcium Level 9.2, Red Blood Count 3.11 L, Mean Corpuscular Volume 91.1, Mean Corpuscular Hemoglobin 30.3, Mean Corpuscular Hemoglobin Concent 33.3, Red Cell Distribution Width 13.5 Labs 24H Laboratory Tests 2 11/14/16 20:14: Bedside Glucose (Misc Panel) 100 11/15/16 07:20: Anion Gap 8, Blood Urea Nitrogen 16, Creatinine 0.83, Sodium Level 141, Potassium Level 4.4, Chloride Level 106, Carbon Dioxide Level 27, Calcium Level 9.2, Glomerular Filtration Rate > 60.0, Prothromb Time International Ratio 1.73 , Prothrombin Time 20.3H FSBS Laboratory Tests Test 11/14/16 20:14 Range/Units Bedside Glucose (Misc Panel) 100 83-110 MG/DL Allergies Allergies: Coded Allergies: Penicillins (Unverified Allergy, Unknown, HIVES, 11/03/16) Current Medications Current Medications Current Medications Acetaminophen (Tylenol) 650 mg Q4HP PRN PO MILD/MODERATE PAIN (PS 1-6) Last administered on 11/15/16 06:30; Start 11/07/16 at 15:15; Stop 12/07/16 at 15:14 Ascorbic Acid (Vitamin C) 500 mg BID PO Last administered on 11/15/16 08:15; Start 11/08/16 at 21:00; Stop 12/08/16 at 20:59 Ascorbic Acid (Vitamin C) 500 mg DAILY PO Last administered on 11/08/16 08:10; Start 11/08/16 at 09:00; Stop 11/08/16 at 09:08; Status DC Citalopram Hydrobromide (CeleXA) 40 mg DAILY PO Last administered on 11/15/16 08:15; Start 11/08/16 at 09:00; Stop 12/08/16 at 08:59 Diclofenac Epolamine (Flector 1.3%) 1 patch Q12H TOP Last administered on 08:14; Start 11/11/16 at 09:30; Stop 12/11/16 at 09:29 Docusate Sodium (Colace) 100 mg BID PO Last administered on 11/14/16 20:22; Start 11/07/16 at 21:00; Stop 12/07/16 at 20:59 Ferrous Gluconate (Fergon) 324 mg BID PO Last administered on 11/15/16 08:15; Start 11/08/16 at 09:00; Stop 12/08/16 at 08:59 Gemfibrozil (Lopid) 600 mg BID PO Last administered on 11/15/16 08:14; Start 11/07/16 at 21:00; Stop 12/07/16 at 20:59 Hydrocortisone (Hydrocortisone 1% Cream) 1 dose BID TOP Last administered on 08:14; Start 11/08/16 at 21:00; Stop 12/08/16 at 20:59 Irbesartan (Avapro) 150 mg DAILY PO Last administered on 11/15/16 08:15; Start 11/08/16 at 09:00; Stop 12/08/16 at 08:59 Magnesium Hydroxide (Milk Of Magnesia) 30 ml DAILYPRN PRN PO CONSTIPATION Last administered on 11/11/16 08:25; Start 11/07/16 at 15:15; Stop 12/07/16 at 15:14 Metoclopramide HCl (Reglan) 5 mg ACHS PO Last administered on 11/15/16 11:49; Start 11/07/16 at 17:30; Stop 12/07/16 at 17:29 Omeprazole (PriLOSEC) 20 mg DAILY PO Last administered on 11/15/16 08:15; Start 11/08/16 at 09:00; Stop 12/08/16 at 08:59 Polyethylene Glycol (Miralax) 1 pkt DAILY PRN PO CONSTIPATION Last administered on 11/11/16 08:25; Start 11/07/16 at 15:15; Stop 12/07/16 at 15:14 Senna (Senokot) 1 tab QHS PO Last administered on 11/14/16 20:22; Start at 21:00; Stop 12/07/16 at 20:59 Tramadol HCl (Ultram) 50 mg Q6HP PRN PO SEVERE PAIN (PS 7-10) Last administered on 11/11/16 14:25; Start 11/07/16 at 15:30; Stop 11/20/16 at 15:29 Tramadol HCl (Ultram) 100 mg Q6HP PRN PO SEVERE PAIN (PS 8-10) Last administered on 11/13/16 08:15; Start 11/07/16 at 15:30; Stop 11/14/16 at 09:34; Status DC Warfarin Sodium (Coumadin) 2.5 mg 1T@17 ONCE PO Last administered on 11/07/16 17:40; Start 11/07/16 at 17:00; Stop 11/07/16 at 17:01; Status DC Warfarin Sodium (Coumadin) 2.5 mg 1T@17 ONCE PO Last administered on 11/08/16 16:51; Start 11/08/16 at 17:00; Stop 11/08/16 at 17:01; Status DC Warfarin Sodium (Coumadin) 2.5 mg 1T@17 ONCE PO Last administered on 11/13/16 17:10; Start 11/13/16 at 17:00; Stop 11/13/16 at 17:01; Status DC Warfarin Sodium (Coumadin) 4 mg 1T@17 ONCE PO Last administered on 11/09/16 16 :57; Start 11/09/16 at 17:00; Stop 11/09/16 at 17:01; Status DC Warfarin Sodium (Coumadin) 5 mg 1T@17 ONCE PO Last administered on 11/11/16 17 :05; Start 11/11/16 at 17:00; Stop 11/11/16 at 17:01; Status DC Warfarin Sodium (Coumadin) 5 mg 1T@17 ONCE PO Last administered on 11/12/16 16 :59; Start 11/12/16 at 17:00; Stop 11/12/16 at 17:01; Status DC Warfarin Sodium (Coumadin) 5 mg 1T@17 ONCE PO Last administered on 11/14/16 16 :49; Start 11/14/16 at 17:00; Stop 11/14/16 at 17:01; Status DC Warfarin Sodium (Coumadin) 6 mg 1T@17 ONCE PO ; Start 11/15/16 at 17:00; Stop 11/15/16 at 17:01 Warfarin Sodium (Coumadin) 7.5 mg 1T@17 ONCE PO Last administered on 11/10/16t 17:19; Start 11/10/16 at 17:00; Stop 11/10/16 at 17:01; Status DC JAGJIT HAN MD Nov 15, 2016 12:50 JAGJIT HAN MD Nov 15, 2016 12:50
[2016-11-15 14:00] VITALS: BP 119/59
[2016-11-15] MEDS ORDERED: WARFARIN SOD 3 MG TAB PO ONE (17:00)
[2016-11-15 20:00] VITALS: BP 115/59
[2016-11-16 06:00] VITALS: BP 128/64
[2016-11-16 07:32] LABS: INR 1.61
[2016-11-16] MEDS: CitaloPRAM (CeleXA) 20 MG TAB PO SCH (08:52)
[2016-11-16] MEDS: FERROUS GLUCONATE 324 MG TAB PO SCH (08:52)
[2016-11-16] MEDS: ASCORBIC ACID 500 MG TAB PO SCH (08:52)
[2016-11-16] MEDS: GEMFIBROZIL 600 MG TAB PO SCH (08:52)
[2016-11-16] MEDS: OMEPRAZOLE 20 MG CAP PO SCH (08:52)
[2016-11-16 08:53] VITALS: BP 128/64
[2016-11-16] MEDS: DICLOFENAC EPOLAMINE 1.3 % PATCH TOP SCH (08:53)
[2016-11-16] MEDS: HYDROCORTISONE 1% CREAM 30 GM TOP SCH (08:53)
[2016-11-16] MEDS: IRBESARTAN 150 MG TAB PO SCH (08:53)
[2016-11-16] MEDS: ACETAMINOPHEN TAB 650MG DOSE (2X325MG) PO PRN (08:56)
[2016-11-16] MEDS ORDERED: COUM2.5T11 PO (10:04)
[2016-11-16] MEDS ORDERED: VITA500T88 PO (10:06)
[2016-11-16] MEDS ORDERED: FERR32TA PO (10:06)
--- NOTE | 2016-11-16 13:47 | DS.PDOC ---
[employer] Discharge Note PROGRESS NOTE DATE OF ADMISSION: 11/07/2016 DATE OF DISCHARGE: 11/16/2016 DISCHARGE DIAGNOSES 1. Right intertrochanteric fracture status post ORIF 2. Presumptive L5 radiculitis, resolved 3. Anemia, acute blood loss 4. Iron deficiency 5. Diabetes mellitus, diet controlled 6. Hypertension 7. Malnutrition 8. Right leg rash, resolved 9. Vomiting, resolved PAST MEDICAL HISTORY: Hypertension Hypercholesteremia Diabetes mellitus, diet controlled Osteoporosis Depression Gastroesophageal reflux disease PAST SURGICAL HISTORY: Cholecystectomy Tubal ligation Adenoidectomy/tonsillectomy Appendectomy HOSPITAL COURSE: The patient underwent daily physical and occupational therapy. She tolerated her therapy sessions well and made progressive gains. Surgical site was monitored periodically and noted to be healing well. [place] were removed prior to discharge on 11/16/15. Other issues addressed while on the rehabilitation unit are outlined as follows: 1. Right leg and lateral foot pain thought possibly 2nd L5 radiculitis. Resolved with Flector patch & ice to low back. 2. DVT prophylaxis: Coumadin, dose by ANEUDY Chun of the orthopedic surgery service. Maintained on SCD and STEFFEN hose. 3. Anemia, acute blood loss: S/p transfusion of 2 units of packed red blood cells. Added iron supplementation 2nd to deficiency. Hgb remained relatively stable. 5. Diabetes mellitus, diet controlled. Maintained carb consistent diet. 6. Hypertension: Adequately controlled on ibesartan. 7. Malnutrition: Prealbumin low so started Glucerna supplements. 8. Pain: Maintained on APAP and tramadol. Tramadol dose was decreased during her rehabilitation due to cognitive side effects. Patient was not reuiring any tramadol for several days prior to discharge. 9. Skin rash, right leg: Provided with hydrocortisone cream with resolution 10. Vomiting: Evenually determined to be related to Reglan. Resolved after discontinuing Reglan. FUNCTIONAL STATUS on discharge: Mod I for ambulation and transfers, able ambulate > 150; I to mod I for ADLs. VITAL SIGNS: Temperature 97.9F, pulse 79, respiratory rate 18, blood pressure 118/56, 97% RA PHYSICAL EXAMINATION: GENERAL: Well nourished, well developed, sitting up in bed, no acute distress. HEENT: Normocephalic, atraumatic, PERRL, EOMI CARDIOVASCULAR: S1, S2, regular rate. No significant edema or calf tenderness bilaterally. LUNGS: Clear to auscultation bilaterally. No wheezing rhonchi or rales. ABDOMEN: Soft, nontender, nondistended. Normoactive bowel sounds throughout. MUSCULOSKELETAL: MMT: 5/5 strength bilateral upper limb and left lower limb in all major muscle groups. 2+/5 right hip flexors, 4/5 right knee extension and flexion, 5/5 right dorsiflexion plantar flexion and EHL. NEUROLOGICAL: Alert and oriented x 3. Answers all questions appropriately. Able to follow commands without difficulty. SKIN: Right lateral hip/thigh surgical sites C/D/I. LABORATORY DATA: 11/15/16: reviewed, see below ALLERGIES: Penicillin MEDICATIONS: Coumadin daily Lopid 600 mg by mouth twice a day Omeprazole 20 mg by mouth twice a day Vitamin C 500 mg daily Celexa 40 mg daily Avapro 150 mg daily Ferrous gluconate 324mg bid Vit C 500mg bid MiraLAX 1 packet by mouth daily prn Milk of magnesia 30 mL daily prn Senna 1 tab po qhs prn Colace 100mg bid prn Acetaminophen 650 mg every 4 hours when necessary for pain or fever DISCHARGE DISPOSITION: 1. The patient discharge home with family and HHS 2. The patient discharged in stable condition 3. Discharged with HHS to include RN, PT, OT and bath aide. Lab draw for PT/INR 4. Equipment: has tub bench, commode and 2WW 5. Post discharge follow-up medical appointments: PCP, Ortho. / Vital Signs/I&O Vital Sign - Last 24 Hours 11/15/16 11/15/16 11/16/16 11/16/16 14:00 20:00 06:00 08:53 Temp 98.3 98.8 98.1 Pulse 86 81 77 Resp 18 18 18 B/P 119/59 115/59 128/64 128/64 Pulse Ox 97 98 96 O2 Delivery Room Air Room Air Room Air I&O- Last 24 Hours up to 6 AM 11/16/16 06:00 Intake Total 960 ml Balance 960 ml Laboratory Data CBC/BMP Laboratory Tests 11/15/16 07:20 Calcium Level 9.2, Red Blood Count 3.11 L, Mean Corpuscular Volume 91.1, Mean Corpuscular Hemoglobin 30.3, Mean Corpuscular Hemoglobin Concent 33.3, Red Cell Distribution Width 13.5 Labs 48H Laboratory Tests 11/14/16 20:14: Bedside Glucose (Misc Panel) 100 11/15/16 07:20: Anion Gap 8, Blood Urea Nitrogen 16, Creatinine 0.83, Sodium Level 141, Potassium Level 4.4, Chloride Level 106, Carbon Dioxide Level 27, Calcium Level 9.2, Fasting Glucose 91, Glomerular Filtration Rate > 60.0, White Blood Count 7.2, Red Blood Count 3.11L, Hemoglobin 9.4L, Hematocrit 28.4L, Mean Corpuscular Volume 91.1, Mean Corpuscular Hemoglobin 30.3, Mean Corpuscular Hemoglobin Concent 33.3, Red Cell Distribution Width 13.5, Platelet Count 616H, Prothromb Time International Ratio 1.73, Prothrombin Time 20.3H 11/16/16 07:08: Prothromb Time International Ratio 1.61, Prothrombin Time 19.2H Medications Medications Current Medications Acetaminophen (Tylenol) 650 mg Q4HP PRN PO MILD/MODERATE PAIN (PS 1-6) Last administered on 11/16/16 08:56; Start 11/07/16 at 15:15; Stop 11/16/16 at 12:45 ; Status DC Ascorbic Acid (Vitamin C) 500 mg BID PO Last administered on 11/16/16 08:52; Start 11/08/16 at 21:00; Stop 11/16/16 at 12:45; Status DC Ascorbic Acid (Vitamin C) 500 mg DAILY PO Last administered on 11/08/16 08:10; Start 11/08/16 at 09:00; Stop 11/08/16 at 09:08; Status DC Citalopram Hydrobromide (CeleXA) 40 mg DAILY PO Last administered on 11/16/16 08:52; Start 11/08/16 at 09:00; Stop 11/16/16 at 12:45; Status DC Diclofenac Epolamine (Flector 1.3%) 1 patch Q12H TOP Last administered on 21:18; Start 11/11/16 at 09:30; Stop 11/16/16 at 12:45; Status DC Docusate Sodium (Colace) 100 mg BID PO Last administered on 11/14/16 20:22; Start 11/07/16 at 21:00; Stop 11/15/16 at 17:30; Status DC Ferrous Gluconate (Fergon) 324 mg BID PO Last administered on 11/16/16 08:52; Start 11/08/16 at 09:00; Stop 11/16/16 at 12:45; Status DC Gemfibrozil (Lopid) 600 mg BID PO Last administered on 11/16/16 08:52; Start 11/07/16 at 21:00; Stop 11/16/16 at 12:45; Status DC Hydrocortisone (Hydrocortisone 1% Cream) 1 dose BID TOP Last administered on 08:53; Start 11/08/16 at 21:00; Stop 11/16/16 at 12:45; Status DC Irbesartan (Avapro) 150 mg DAILY PO Last administered on 11/16/16 08:53; Start 11/08/16 at 09:00; Stop 11/16/16 at 12:45; Status DC Magnesium Hydroxide (Milk Of Magnesia) 30 ml DAILYPRN PRN PO CONSTIPATION Last administered on 11/11/16 08:25; Start 11/07/16 at 15:15; Stop 11/16/16 at 12:45; Status DC Metoclopramide HCl (Reglan) 5 mg ACHS PO Last administered on 11/15/16 16:36; Start 11/07/16 at 17:30; Stop 11/15/16 at 17:35; Status DC Omeprazole (PriLOSEC) 20 mg DAILY PO Last administered on 11/16/16 08:52; Start 11/08/16 at 09:00; Stop 11/16/16 at 12:45; Status DC Polyethylene Glycol (Miralax) 1 pkt DAILY PRN PO CONSTIPATION Last administered on 11/11/16 08:25; Start 11/07/16 at 15:15; Stop 11/16/16 at 12:45; Status DC Senna (Senokot) 1 tab QHS PO Last administered on 11/14/16 20:22; Start at 21:00; Stop 11/15/16 at 17:30; Status DC Tramadol HCl (Ultram) 50 mg Q6HP PRN PO SEVERE PAIN (PS 7-10) Last administered on 11/11/16 14:25; Start 11/07/16 at 15:30; Stop 11/16/16 at 12:45; Status DC Tramadol HCl (Ultram) 100 mg Q6HP PRN PO SEVERE PAIN (PS 8-10) Last administered on 11/13/16 08:15; Start 11/07/16 at 15:30; Stop 11/14/16 at 09:34; Status DC Warfarin Sodium (Coumadin) 2.5 mg 1T@17 ONCE PO Last administered on 11/07/16 17:40; Start 11/07/16 at 17:00; Stop 11/07/16 at 17:01; Status DC Warfarin Sodium (Coumadin) 2.5 mg 1T@17 ONCE PO Last administered on 11/08/16 16:51; Start 11/08/16 at 17:00; Stop 11/08/16 at 17:01; Status DC Warfarin Sodium (Coumadin) 2.5 mg 1T@17 ONCE PO Last administered on 11/13/16 17:10; Start 11/13/16 at 17:00; Stop 11/13/16 at 17:01; Status DC Warfarin Sodium (Coumadin) 4 mg 1T@17 ONCE PO Last administered on 11/09/16 16 :57; Start 11/09/16 at 17:00; Stop 11/09/16 at 17:01; Status DC Warfarin Sodium (Coumadin) 5 mg 1T@17 ONCE PO Last administered on 11/11/16 17 :05; Start 11/11/16 at 17:00; Stop 11/11/16 at 17:01; Status DC Warfarin Sodium (Coumadin) 5 mg 1T@17 ONCE PO Last administered on 11/12/16 16 :59; Start 11/12/16 at 17:00; Stop 11/12/16 at 17:01; Status DC Warfarin Sodium (Coumadin) 5 mg 1T@17 ONCE PO Last administered on 11/14/16 16 :49; Start 11/14/16 at 17:00; Stop 11/14/16 at 17:01; Status DC Warfarin Sodium (Coumadin) 6 mg 1T@17 ONCE PO Last administered on 11/15/16 16:36; Start 11/15/16 at 17:00; Stop 11/15/16 at 17:01; Status DC Warfarin Sodium (Coumadin) 7.5 mg 1T@17 ONCE PO ; Start 11/16/16 at 17:00; Stop 11/16/16 at 17:00; Status DC Warfarin Sodium (Coumadin) 7.5 mg 1T@17 ONCE PO Last administered on 11/10/16t 17:19; Start 11/10/16 at 17:00; Stop 11/10/16 at 17:01; Status DC Scheduled (Tab-A-Viji) 1 Tab Tab 1 TAB PO DAILY (Reported) Ascorbic Acid (Vitamin C) 500 Mg Tab 500 MG PO BID Citalopram Hydrobromide (Citalopram Hydrobromide) 40 Mg Tab 40 MG PO DAILY ( Reported) Ferrous Gluconate (Ferrous Gluconate) 324 Mg Tab 324 MG PO BID Gemfibrozil (Gemfibrozil) 600 Mg Tab 600 MG PO BID (Reported) Inositol Niacinate (Inos Hexan (Niacin Flush Free) 500 Mg Cap 500 MG PO QPM ( Reported) Irbesartan (Irbesartan) 150 Mg Tab 150 MG PO DAILY (Reported) Omeprazole (Omeprazole) 20 Mg Cap 20 MG PO DAILY (Reported) Vitamin D (Drisdol) 50,000 Unit Cap 50,000 UNIT PO QMONTH (Reported) LAST MONDAY OF EVERY MONTH Warfarin Sod (Coumadin) 2.5 Mg Tab 1 TAB PO ASDIRECTED 2 tabs today 5pm 11/16/16, then 1 tab daily starting 11/17/16, then adjusted by [facility] per INR Allergies Coded Allergies: Penicillins (Unverified Allergy, Unknown, HIVES, 11/03/16) JAGJIT HAN MD Nov 16, 2016 13:47
[2016-11-16] MEDS ORDERED: WARFARIN SOD 7.5 MG TAB PO ONE (17:00)
== END 2016-11-16 12:30 | disposition home health service (06) | DRG 560 ==
LOC: M PM&R 15:05
PROVIDERS: ADMIT Physical Medicine & Rehabilitation; ATTEND Physical Medicine & Rehabilitation
DX: S72.141D Displaced intertrochanteric fracture of right femur, subsequent encounter for closed fracture with routine healing (principal); D62 Acute posthemorrhagic anemia; E46 Unspecified protein-calorie malnutrition; I10 Essential (primary) hypertension; K21.9 Gastro-esophageal reflux disease without esophagitis; Z88.0 Allergy status to penicillin; M81.0 Age-related osteoporosis without current pathological fracture; Z79.01 Long term (current) use of anticoagulants; Z79.899 Other long term (current) drug therapy; Z81.1 Family history of alcohol abuse and dependence; Z82.49 Family history of ischemic heart disease and other diseases of the circulatory system; E11.9 Type 2 diabetes mellitus without complications; W00.0XXD Fall on same level due to ice and snow, subsequent encounter; Y92.480 Sidewalk as the place of occurrence of the external cause; Y93.K1 Activity, walking an animal; Y99.9 Unspecified external cause status; R21 Rash and other nonspecific skin eruption; M54.16 Radiculopathy, lumbar region; D50.9 Iron deficiency anemia, unspecified; R11.10 Vomiting, unspecified

== ENCOUNTER → 2016-11-17 | Outpatient (REF) | payer MEDICARE, OTHER ==
[~2016-11-17] MED LIST changes: +FERR32TA PO
[2016-11-17 15:27] LABS: INR 1.73
== END ==
LOC: M SHH 14:43
PROVIDERS: ATTEND Nurse Practitioner Family
DX: Z79.01 Long term (current) use of anticoagulants (principal)

== ENCOUNTER → 2016-11-21 | Outpatient (REF) | payer MEDICARE, OTHER ==
[2016-11-21 14:53] LABS: INR 2.15
== END ==
LOC: M SHH 14:10
PROVIDERS: ATTEND Nurse Practitioner Family
DX: Z79.01 Long term (current) use of anticoagulants (principal)

== ENCOUNTER → 2016-11-24 | Outpatient (REF) | payer MEDICARE, OTHER ==
[2016-11-24 11:16] LABS: INR 1.35
== END ==
LOC: M SHH 10:49
PROVIDERS: ATTEND Nurse Practitioner Family
DX: Z79.01 Long term (current) use of anticoagulants (principal)

== ENCOUNTER → 2016-11-28 | Outpatient (REF) | payer MEDICARE, OTHER ==
[2016-11-28 12:49] LABS: INR 1.47
== END ==
LOC: M LAB REF 11:45
PROVIDERS: ATTEND Nurse Practitioner Family
DX: E78.5 Hyperlipidemia, unspecified (principal); I10 Essential (primary) hypertension; E11.9 Type 2 diabetes mellitus without complications; K21.9 Gastro-esophageal reflux disease without esophagitis

== ENCOUNTER → 2016-11-28 | Outpatient (REF) | payer MEDICARE, OTHER ==
[2016-11-28 12:46] LABS: BASO % 0.3 % (0.0-1.0); EOS # 0.2 K/mm3 (0.0-0.50); EOS % 3.2 % (0.0-3.0); LYMPH # 1.6 K/mm3 (1.5-4.5); LYMPH % 30.5 % (24.0-44.0); MEAN CORPUSCULAR HEMOGLOBIN 29.6 pg (27.0-33.0); MEAN CORPUSCULAR HGB CONC 32.2 g/dl (32.0-36.5); MEAN CORPUSCULAR VOLUME 92.1 fl (80.0-96.0); MONO # 0.4 K/mm3 (0.0-0.8); MONO % 8.1 % (0.0-5.0); NEUTROPHILS % 55.3 % (36.0-66.0); RED CELL DISTRIBUTION WIDTH 13.4 % (11.5-14.5); WHITE BLOOD COUNT 5.4 K/mm3 (4.0-10.0)
[2016-11-28 13:06] LABS: VITAMIN B12 LEVEL 730 PG/ML (247-911)
[2016-11-28 13:07] LABS: FOLATE > 24.0 NG/ML (>5.4)
[2016-11-28 14:17] LABS: ALBUMIN/GLOBULIN RATIO 1.11 (1.00-1.93); ALKALINE PHOSPHATASE 203 U/L (45-117); ALT/SGPT 25 U/L (12-78); ANION GAP 11 MEQ/L (8-16); AST/SGOT 24 U/L (15-37); BILIRUBIN,TOTAL 0.4 MG/DL (0.2-1.0); BLOOD UREA NITROGEN 17 MG/DL (7-18); CALCIUM LEVEL 9.5 MG/DL (8.8-10.2); CARBON DIOXIDE LEVEL 26 MEQ/L (21-32); CHLORIDE LEVEL 102 MEQ/L (98-107); FREE T4 0.96 NG/DL (0.76-1.46); GLOMERULAR FILTRATION RATE > 60.0 (>32); GLUCOSE, FASTING 124 MG/DL (83-110); POTASSIUM SERUM 4.9 MEQ/L (3.5-5.1); SODIUM LEVEL 139 MEQ/L (136-145); TOTAL PROTEIN 7.6 GM/DL (6.4-8.2)
== END ==
LOC: M SHH 11:42
PROVIDERS: ATTEND Family Medicine
DX: E78.5 Hyperlipidemia, unspecified (principal); I10 Essential (primary) hypertension; E55.9 Vitamin D deficiency, unspecified; K21.9 Gastro-esophageal reflux disease without esophagitis; E11.9 Type 2 diabetes mellitus without complications; Z79.01 Long term (current) use of anticoagulants

== ENCOUNTER → 2016-12-01 | Outpatient (REF) | payer MEDICARE, OTHER | LOC: M SHH 13:59 | PROVIDERS: ATTEND Family Medicine | DX: E78.5 Hyperlipidemia, unspecified (principal); E55.9 Vitamin D deficiency, unspecified; K21.9 Gastro-esophageal reflux disease without esophagitis; E11.9 Type 2 diabetes mellitus without complications; I10 Essential (primary) hypertension; Z51.81 Encounter for therapeutic drug level monitoring; Z79.01 Long term (current) use of anticoagulants ==

== ENCOUNTER → 2016-12-01 | Outpatient (REF) | payer MEDICARE, OTHER ==
[2016-12-01 14:15] LABS: INR 1.84
== END ==
LOC: M SHH 13:57
PROVIDERS: ATTEND Nurse Practitioner Family
DX: Z79.01 Long term (current) use of anticoagulants (principal)

== ENCOUNTER 2017-10-13 22:25 | Emergency (ER) | payer BC, OTHER, MEDICARE ==
[~2017-10-13] VITALS: Ht 147.3 cm; Wt 63.6 kg
[~2017-10-13 22:25] MED LIST changes: -COUM2.5T11 PO; +COUM2.5T17 PO
[2017-10-13] MEDS ORDERED: MORPHINE 10 MG/ML 1ML VIAL IM ONE (23:15)
[2017-10-13] MEDS ORDERED: NORCOTAB PO (23:45)
[2017-10-13] MEDS ORDERED: COLA100C5 PO (23:45)
[2017-10-14] VITALS: BP 121/71
--- NOTE | 2017-10-14 12:06 | REP ---
REASON: Trauma. Four views of the right humerus show a comminuted proximal humeral fracture without evidence of glenohumeral dislocation. There are some calcifications in the soft tissues superior to the humeral head suggestive of chronic calcific supraspinatus tendinitis. This needs to be correlated clinically. There is some irregularity of the superior glenoid and I cannot rule out a concomitant glenoid fracture. IMPRESSION: Comminuted humeral fracture and other findings as described above. Signed by Elias Young DO 10/14/2017 09:18 A
== END 2017-10-14 00:05 | disposition home or self-care (01) ==
LOC: M ED 22:25
DX: S42.294A Other nondisplaced fracture of upper end of right humerus, initial encounter for closed fracture (principal); W19.XXXA Unspecified fall, initial encounter; Y92.410 Unspecified street and highway as the place of occurrence of the external cause; Y93.01 Activity, walking, marching and hiking; Y99.8 Other external cause status; I10 Essential (primary) hypertension; E11.9 Type 2 diabetes mellitus without complications; K57.92 Diverticulitis of intestine, part unspecified, without perforation or abscess without bleeding; Z88.0 Allergy status to penicillin; Z79.899 Other long term (current) drug therapy